=== PATIENT | female | born 1970 | race Caucasian/White ===

== ENCOUNTER 2022-01-01 06:31 | Day surgery (SDC) | payer OTHER, BC, SELFPAY ==
[2022-01-01] VITALS (8 sets, daily range): BP systolic 95–130; BP diastolic 51–93; PULSE 71–80; RESP 16; TEMP 36.1–36.5; O2SAT 96–100; BMI 35.4
--- NOTE | 2022-01-01 06:48 | CRLHL7_ITS ---
For Patients: As a result of the Cures Act, medical imaging exams and procedure reports are released immediately into your electronic medical record. You may view this report before your referring provider. If you have questions, please contact your health care provider. Indication: INTRA OP CRPP Technique: Three fluoroscopic images the left hand. Fluoroscopic time 48.6 seconds. IMPRESSION: Fluoroscopic guidance for closed reduction percutaneous pin placement about a fracture involving the little finger proximal phalanx. Dictated by Abhinav Vazquez MD @ 01/01/2022 8:48:02 AM (Electronically Signed)
[2022-01-01] MEDS: LACTATED RINGERS 1000 ML 1,000 ML 100 ML IV (07:30)
[2022-01-01] MEDS: SODIUM CHLORIDE 0.9 % (FLUSH) 10 ML SYRINGE IVF (07:30)
[2022-01-01] MEDS: fentaNYL 100 MCG/2 ML inj IVP (07:40)
[2022-01-01] MEDS: MIDAZOLAM HCL 1 MG/ML inj IVP (07:40)
--- NOTE | 2022-01-01 07:56 | SUR.PREOP ---
TIME?OUT:?0738 PT/RN/MDA?VERIFICATION?OF?SURGICAL?SITE,?PROCEDURE,?AND?CONSENT OBTAINED?PRIOR?TO?INVASIVE?PROCEDURE.
[2022-01-01] MEDS: CEFAZOLIN 2 GM INJ IVP (08:09)
--- NOTE | 2022-01-01 08:25 | SUR.OPER ---
PATIENT QUESTIONS ANSWERED SATISFACTORILY PREOPERATIVELY.? PATIENT BROUGHT TO OR #2 PER CART AFTER THE BLOCK.? Patient positioned supine on OR #2 bed.?The perioperative?team supported arms bilaterally on arm boards.? Final approval of positioning by surgeon.?
--- NOTE | 2022-01-01 08:45 | PM.ORPRC ---
Procedure Note Date of procedure: 01/01/22 Procedure: SURGEON: Royal Wright MD TELEPHONE SURVEYOR: JULIAN Spring PREOPERATIVE DIAGNOSIS: Extra-articular, comminuted, angulated and shortened left hand small finger proximal phalanx fracture POSTOPERATIVE DIAGNOSIS: Extra-articular, comminuted, angulated and shortened left hand small finger proximal phalanx fracture NAME OF OPERATION: Closed reduction percutaneous pinning ANESTHESIA: Axillary block plus monitored anesthesia care ESTIMATED BLOOD LOSS: 0 mL COMPLICATIONS: None SPECIMENS: None DRAINS: None PREOPERATIVE ANTIBIOTICS: Ancef 2 grams INDICATIONS: The patient is a 51-year-old female who fell landing on their upper extremity sustaining the above injury. Given the amount of angulation, reduction and plate fixation were recommended. The risks, benefits and expected outcomes were discussed in detail. These included but were not limited to: Infection, bleeding, injury to blood vessel or nerve, venous thromboembolism. All questions were answered to their satisfaction. Use of an chiropractor assistant was necessary throughout the case for patient positioning and safety, maintenance of the reduction, surgical site dressing and splint application. PROCEDURE: An axillary block was placed by the chiropractor assistant. The patient was placed supine on the operating room table. The fracture was reduced closed, with longitudinal traction and dorsal force on the distal fragment. The image intensifier was used to confirm an anatomic reduction. A 0.062 in K-wire was driven antegrade, from ulnar side of the base of proximal phalanx, across the fracture site, engaging the radial side of the distal fragment. Its placement was confirmed with the image intensifier. A 2nd 0.062 in K-wire was driven retrograde from the ulnar side of the distal fragment, proximally across the fracture site engaging the radial side of proximal fragment. Its placement was confirmed with the image intensifier. This construct was evaluated with the image intensifier. It was felt that our implants were well placed and our reduction was excellent. Pins were cut off and were appropriately dressed. A short-arm ulnar gutter splint was applied. These steps were all completed by the chiropractor assistant. Sponge and needle counts were correct x2. The patient tolerated the procedure well, there were no apparent complications. They were taken to the postanesthesia care unit in satisfactory condition. PLAN: The patient will be discharged home. They will work on elevation of the hand. They will follow up next week in the office for a wound check with three views of the left hand, out of the splint prior to being seen, in preparation for an ulnar gutter cast.
--- NOTE | 2022-01-01 08:59 | W.ANESCHARGE ---
Anesthesia Charges Start Date/Time Anesthesia Start Date: 01/01/22 Anesthesia Start Time: 08:03 Stop Date/Time Anesthesia Stop Date: 01/01/22 Anesthesia Stop Time: 08:56 Summary Emergency: No
--- NOTE | 2022-01-01 09:14 | W.PM.NB ---
Nerve Block Nerve Block Time Seen by Provider: 07:30 Date Seen: 01/01/22 Type of block requested by surgeon for post-operative analgesia: axillary Side: left Time out performed: Yes Verification of patient name: Yes Verification of date of : Yes Site marking: site marked Name of person performing procedure: Darrel Assistants, if any: Deambrogio Continuous monitoring Was continuous monitoring of O2 sat, B/P, director of cardiac rehabilitation, recorded every 15 minutes?: Yes Procedure Checklist: sterile prep, needles and gloves Ultrasound guided. Images saved: Yes Medications given in 5ml increments after negative aspiration: Marcaine %: 0.5 mL: 10 Needle gauge: 22 and Lidocaine %: 2 mL: 20 Needle gauge: 22 Patient tolerated procedure well: Yes Additional comments: Needle noted adjacent to nerve Block Charges Block Charge (with Pro Fee): Brachial Plexus Use of Ultrasound Machine for Block: Yes- US Guidance/pain block
--- NOTE | 2022-01-01 09:15 | W.ANESCHARGE ---
Anesthesia Charges Start Date/Time Anesthesia Start Date: 01/01/22 Anesthesia Start Time: 08:03 Stop Date/Time Anesthesia Stop Date: 01/01/22 Anesthesia Stop Time: 08:56 Summary Emergency: No
--- NOTE | 2022-01-01 09:21 | W.ANESCHARGE ---
Anesthesia Charges Start Date/Time Anesthesia Start Date: 01/01/22 Anesthesia Start Time: 08:03 Stop Date/Time Anesthesia Stop Date: 01/01/22 Anesthesia Stop Time: 08:56 Summary Emergency: No
== END 2022-01-01 09:56 | disposition home or self-care (01) ==
PROVIDERS: PCP Family Medicine; Visit Provider Orthopaedic Surgery
PROC: (CPT 26727; principal; 2022-01-01 08:00)
DX: S62.617A Displaced fracture of proximal phalanx of left little finger, initial encounter for closed fracture (principal)
CPT/HCPCS: 26727; 01820; 01830; 64415; 73130; 76942; A4565; A4580; J0690; J1100; J2250; J2405; J2704; J3010; J7120

== ENCOUNTER 2022-05-08 11:30 | Outpatient (RCR) | payer OTHER, BC, SELFPAY | END 2022-05-08 16:03 | disposition home or self-care (01) | PROVIDERS: PCP Family Medicine; Visit Provider Orthopaedic Surgery | DX: S62.605D Fracture of unspecified phalanx of left ring finger, subsequent encounter for fracture with routine healing (principal); Z51.89 Encounter for other specified aftercare | CPT/HCPCS: 97110; 97140; 97530; X5282 ==

== ENCOUNTER 2022-07-30 15:00 | Outpatient (CLI) | payer BC, OTHER, SELFPAY | END 2022-07-30 15:01 | disposition home or self-care (01) | PROVIDERS: PCP Family Medicine; Visit Provider Family Medicine | DX: M17.11 Unilateral primary osteoarthritis, right knee (principal); M25.561 Pain in right knee | CPT/HCPCS: 20610; 64454 ==

== ENCOUNTER 2022-08-20 11:51 | Outpatient (CLI) | payer BC, OTHER, SELFPAY | END 2022-08-20 11:52 | disposition home or self-care (01) | LOC: INJ CL 11:52 | PROVIDERS: PCP Family Medicine; Visit Provider Family Medicine | DX: M17.11 Unilateral primary osteoarthritis, right knee (principal); M25.561 Pain in right knee; G89.29 Other chronic pain | CPT/HCPCS: 64624; J2250; J3010 ==

== ENCOUNTER 2022-09-17 14:19 | Outpatient (CLI) | payer BC, OTHER, SELFPAY | END 2022-09-17 14:20 | disposition home or self-care (01) | LOC: INJ CL 14:21 | PROVIDERS: PCP Family Medicine; Visit Provider Family Medicine | DX: M17.12 Unilateral primary osteoarthritis, left knee (principal); M25.562 Pain in left knee | CPT/HCPCS: 64454 ==

== ENCOUNTER 2024-07-13 12:01 | Emergency (ER) | payer BC, SELFPAY ==
[2024-07-13 12:06] VITALS: BP 137/83; PULSE 70; RESP 16; TEMP 37.1; O2SAT 100; BMI 33.8
--- NOTE | 2024-07-13 12:14 | ED.GENADULT ---
HPI - General Adult General Chief complaint: Fall/Minor Trauma Stated complaint: Fall, lac around L eye Time Seen by Provider: 07/13/24 12:04 History of Present Illness HPI narrative: Patient reports falling this AM at work. Has small laceration near left eye lid with periorbital swelling. No LOC. 54-year-old woman presenting to the emergency department following a fall and sustaining a laceration about the left eye. Apparently had a plastic water jug on her way to water some [place] in the office when she tripped and landed with her eye/head on said water bottle. Is not having any neck or back pain. There was no loss of consciousness. Dentition feels normal. Is not anticoagulated. No diplopia. Does have some pain around her left eye where she has sustained a laceration. Strongly encouraged spine plain mid to present to the emergency department for further evaluation and care. Related Data Home Medications ?Medication ?Instructions ?Recorded ?Confirmed allopurinol 300 mg tablet 300 mg PO QDAY 12/26/21 03/20/22 escitalopram oxalate 5 mg tablet 5 mg PO QDAY 12/26/21 03/20/22 furosemide 20 mg tablet 20 mg PO QDAY 12/26/21 03/20/22 metoprolol succinate 50 mg tab PO 12/26/21 03/20/22 tablet,extended release 24 hr omeprazole 20 mg capsule,delayed 20 mg PO QDAY 12/26/21 07/13/24 release potassium chloride 20 mEq tab PO 12/26/21 03/20/22 tablet,extended release(part/cryst) escitalopram oxalate 20 mg tablet mg DAILY 07/13/24 thiamine HCl (vitamin B1) 100 mg mg DAILY 07/13/24 tablet Allergies Allergy/AdvReac Type Severity Reaction Status Date / Time chlorthalidone AdvReac Verified 03/20/22 11:12 erythromycin base AdvReac Nausea Verified 03/20/22 11:12 Penicillins AdvReac syncope Verified 03/20/22 11:12 Review of Systems Status of ROS: Reports: 6 or more systems reviewed and unremarkable except as noted in History and below [facility] Medical History Surgery follow-up ?Z09 - Encounter for follow-up examination after completed treatment for conditions other than malignant neoplasm (ICD-10) Depression ?F32.A - Depression, unspecified (ICD-10) Hypertension ?I10 - Essential (primary) hypertension (ICD-10) GERD (gastroesophageal reflux disease) ?K21.9 - Gastro-esophageal reflux disease without esophagitis (ICD-10) Surgical History History of hand surgery ?Z98.890 - Other specified postprocedural states (ICD-10) Family History Paternal Grandmother Colon cancer Father Diabetes Social History Narrative: former smoker, , environmental engineering intern Smoking Status: Former smoker What tobacco products do you use: cigarettes Smoking quit date/years: <= 15 years ago Do you use any of these nicotine containing products: None Second hand tobacco smoke exposure: No How often do you have a drink containing alcohol: 4 or more times a week Alcohol type: hard liquor How many standard drinks containing alcohol do you have on a typical day: 1 or 2 How often do you have six or more drinks on one occasion: Never AUDIT-C Alcohol total score: 4 Non-prescribed substance use: denies use Caffeine: No Are you now , , , , never or living with a partner: Social isolation score (0-1 are the most socially isolated patients): 1 Are you using contraception or practicing any form of control: No Exam Narrative: Exam Narrative: Pleasant. Energetic. NAD. There is already purpling in mild swelling of the left eyelid. Near total coverage of the left eye medial sclera with subconjunctival hemorrhage. There is some lateral Periorbital bruising. Sore to palpation over the orbital rim but no irregularities otherwise, step-offs appreciated. A 1-1/4 partial dermal laceration at the corner of the left eye. Dentition appears to be intact anteriorly. Centrally on further exploration there appears to be just a small amount of perforation centrally to be full dermal. Extraocular movements are full. Pupils are 3 mm and equal and briskly reactive. No hyphema evident. Left eye with normal funduscopic exam as well. Neck is supple nontender. Back nontender. Const: Vital Signs, click to edit/add: Vital Signs - 24 hr 07/13/24 12:06 Temperature 98.8 F Pulse Rate [Pulse Oximeter] 70 Respiratory Rate 16 Blood Pressure [Ri ght Upper Arm] 137/83 Pulse Oximetry 100 Documenting provider has reviewed patient's vital signs: yes Course Vital Signs Vital signs: Initial Vital Signs Temperature 98.8 F 07/13/24 12:06 Temperature Source Temporal Artery Scan 07/13/24 12:06 Pulse Rate 70 07/13/24 12:06 Respiratory Rate 16 07/13/24 12:06 Blood Pressure 137/83 07/13/24 12:06 Blood Pressure Mean 101 07/13/24 12:06 Pulse Oximetry 100 07/13/24 12:06 Vital Signs Temperature 98.8 F 07/13/24 12:06 Pulse Rate 70 07/13/24 12:06 Respiratory Rate 16 07/13/24 12:06 Blood Pressure 137/83 07/13/24 12:06 Pulse Oximetry 100 07/13/24 12:06 Temperature 98.8 F 07/13/24 12:06 Pulse Rate 70 07/13/24 12:06 Respiratory Rate 16 07/13/24 12:06 Blood Pressure 137/83 07/13/24 12:06 Pulse Oximetry 100 07/13/24 12:06 Medical Decision Making MDM Narrative Medical decision making narrative: Appears generally well. Does not sound to have sustained significant closed head injury. No diplopia suggest no significant trauma or retro-orbital bleeding. Is not anticoagulated. I do not think needs any head or neck imaging at this time. I return to clean the laceration. I think would scar less with repair. Bleeding is controlled however. Cleansed with Shur-Clens type solution and with tension on the wound can actually provide excellent approximation. Had thought that would place a Steri-Strip. She had asked about glue. Glue in is certainly another option. I do this and laceration appears to be well approximated. Tolerated well. See patient discharge plan for further discussion Wound should not need any special cares at this point. Should be good if the glue can stay on at least 3 days. Let it fall off. Watch for increasing eye pain particularly accompanied by double vision, uncontrolled headache, repeated vomiting. Would consider icing around your eye couple of times daily over the next few days. I like those screw top ice bags; fill with ice and water. Consider some stretching and ibuprofen. Might be a little sore tomorrow. Medical Records Medical records reviewed: Yes I reviewed the patient's medical records Discharge Plan Discharge Clinical Impression: Facial laceration, Subconjunctival hemorrhage, Closed head injury Patient Disposition: Home, Self-Care Condition: Improved Additional Instructions: Wound should not need any special cares at this point. Should be good if the glue can stay on at least 3 days. Let it fall off. Watch for increasing eye pain particularly accompanied by double vision, uncontrolled headache, repeated vomiting. Would consider icing around your eye couple of times daily over the next few days. I like those screw top ice bags; fill with ice and water. Consider some stretching and ibuprofen. Might be a little sore tomorrow. Prescriptions: No Action furosemide 20 mg tablet 20 mg PO QDAY allopurinol 300 mg tablet 300 mg PO QDAY metoprolol succinate 50 mg tablet extended release 24 hr PO potassium chloride 20 mEq tablet,ER particles/crystals PO escitalopram oxalate 5 mg tablet 5 mg PO QDAY omeprazole 20 mg capsule,delayed release(DR/EC) 20 mg PO QDAY thiamine HCl (vitamin B1) 100 mg tablet DAILY escitalopram oxalate 20 mg tablet DAILY Follow Up/Referrals: Martina Villalta DO [Primary Care Provider] - Stand Alone Forms: [employer] Info Instructions
--- OUTSIDE RECORDS SUMMARY | 2024-07-13 12:44 | XMS_ITS | Clinical Summary ---
Author Organization [facility] Address [address] [place] [address] Care Team Providers Care Or Rn Name Role Phone PawanMartina Primary Care Provider [phone] Pcp, No Unavailable Unavailable Allergies Active Allergy Reactions Criticality Noted Date Comments Chlorthalidone Hypokalemia 09/16/2019 Caused critically low sodium Erythromycin Rash 05/04/2014 Penicillins Other - Describe In Comment Field 05/04/2014 unresponsive spell (this happened in fourth grade) Medications acetaminophen (TYLENOL EXTRA STRGTH) 500 mg tablet Take 2 tablets by mouth every 6 hours if needed. Max acetaminophen dose: 4000mg in 24 hrs. 0 04/21/20 18 Active medical supply, miscellaneous (GRADUATED COMPRESSION STOCKINGS)Indicat ions:Pedal edema For personal use. Length: thigh Strength:16-20 mmHg Circ cm: For thigh: Ankle 30cm, Calf 47cm, Thigh 63cm, Thigh to Ankle length 63cm. 1 Packet 01/19/20 20 Active triamcinolone 0.5% (ARISTOCORT) 0.5 % creamIndications: Chronic eczema Apply at areas on legs 1-2 times a day. 454 g 10/02/19 22 Active colchicine 0.6 mg tabletIndications :Acute idiopathic gout of knee, unspecified laterality As directed 1 Tablet (0.6 mg) once daily. 1 ORAL twice daily FOR 4-5 days during flare up. 20 Tablet 2 11/22/19 22 Active turmeric root extract 500 mg cap Take 1 Capsule by mouth once daily. Active estradioL (ESTRACE) 0.01% (0.1 mg/g) vaginal creamIndications: Vaginal atrophy Start 2g PV nightly x 2 weeks then decrease to 1-3 times a week 42.5 g 3 11/20/19 23 Active durable medical equipment (DME)Indications: Plantar fasciitis PLANTAR FASCIITIS NIGHT SPLINT, Large 1 Each 04/08/20 23 Active potassium chloride (KLOR-CON M20) 20 mEq extended-release tablet (part/cryst)Indic ations:Pedal edema Take 20 meq by mouth daily as needed for use with Furosemide 90 Tablet 3 06/02/19 24 Active furosemide (LASIX) 20 mg tabletIndications :Pedal edema Take 1 Tablet (20 mg) by mouth once daily if needed (for weight gain of 3 lbs one day or 5 lbs or more in one week). 90 Tablet 3 06/02/19 24 Active CPAPIndications:O SA (obstructive sleep apnea) CPAP machine for home use at pressure 5-15cmw, nasal mask x1/3month with nasal cushion x2/mo 1 Each 11 09/10/19 24 Active escitalopram oxalate (LEXAPRO) 20 mg tabletIndications :Emotional lability Take 1 Tablet (20 mg) by mouth once daily. 90 Tablet 3 11/07/19 24 Active omeprazole (PRILOSEC) 20 mg Delayed-Release capsuleIndication s:Gastroesophagea l reflux disease, unspecified whether esophagitis present TAKE ONE CAPSULE BY MOUTH EVERY DAY BEFORE A MEAL 90 Capsule 1 04/26/20 24 Active thiamine (VITAMIN B1) 100 mg tabletIndications :Decreased cardiac ejection fraction Take 1 Tablet (100 mg) by mouth once daily. 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 Hit head hard. Left side of face and eye has hematoma ) 07/13/2024 Travel 04/26/2024 Refill [facility] [address] [place] [address] Martina Villalta, DO Refill Request (Thiamine) 04/24/2024 Refill [facility] [address] [place] [address] Martina Villalta, Refill Request (Omeprazole) from Last 3 Months Immunizations Name Administration Dates Next Due COVID-19 vaccine (Powerlytics-Bio NTech 30mcg/0.3mL) 12YO+ BRIANNA-SUCROSE PF, MDV 10/01/2021 COVID-19 vaccine (Pfizer-Bio NTech 30mcg/0.3mL) PF, MDV 10/03/2020,09/12/2020 HepA-HepB (Twinrix) 10/25/2004,11/18/2003,2003 Influenza, IIV4 03/04/2023,,03/15/2021,02/07/20 20,04/21/2018,03/11/2017 Td (Age >=7 Years) 07/27/2002 Tdap 09/07/2015 Zoster (Shingrix-RZV, recombinant) 10/05/2018, Family History Medical History Relation Name Comments Diabetes Father Hypertension Father Cancer Maternal Grandfather Cancer Maternal Grandmother Diabetes Maternal Grandmother Cancer-breast Mother pre-cancer / r adiation Cancer-colon Paternal Grandmother Cancer-ovarian No Family History Relation Name Status Comments Father Maternal Grandfather Maternal Grandmother Mother Alive Paternal Grandmother Social History Tobacco Use Types Packs/Day Years Used Date Smoking Tobacco: Former Cigarettes 0 07/30/1988 - 08/24/2015 Smokeless Tobacco: Never Tobacco Cessation:Counseling Given: Yes Alcohol Use Standard Drinks/Week Comments Not Currently 0 (1 standard drink = 0.6 oz pur e alcohol) PHQ-2 Answer Date Recorded PHQ-2 TOTAL SCORE 0 09/16/2023 Social Connections Answer Date Recorded Do you often feel lonely or isolated from those around you? 0 07/28/2023 Alcohol Use Answer Date Recorded How often do you have a drink containing alcohol ? 3 06/24/2023 How many drinks containing a lcohol do you have on a typical day when you are drinking? 0 06/24/2023 How often do you have five or more drinks on one occasion? 0 06/24/2023 Financial Resource Strain Answer Date R ecorded Difficulty of Paying Living Expenses 3 07/28/2023 Difficulty of Paying Living Expenses Not on file 07/28/2023 Food Insecurity Answer Date Recorded Do you worry your food will run out before you are able to buy more? 1 07/28/2023 Transportation Needs Answer Date Record ed Does lack of transportation keep you from medica l appointments? 1 07/28/2023 Does lack of transportation keep you from work, meetings or getting things that you need? 1 07/28/2023 Housing Stability Answer Date Recorded What is your housing situation today? 1 07/28/2023 Utilities Answer Date Recorded Do you have trouble paying f or utilities (for example, heat, electricity, water, phone)? 1 07/28/2023 Comments No Sex and Gender Information Value Date Recorded Sex Assigned at Not on file Legal Sex Female 12:33 PM DECAL APPLIER Gender Identity Not on file Sexual Orientation Not on file Obstetrics History Para Term AB IAB SAB Ectopic Multiple Livin g Live Births 3 2 2 0 1 0 1 0 0 2 2 Date Outcome GA Total Labor Labor/2nd/3rd Weight Sex Type Anes PTL Bisi A1 A5 Name Clin SAB Term Vag Living Term Vag Living Last Filed Vital Signs Vital Sign Reading Time Taken Comments Blood Pressure 134/82 07/13/2024 11:01 AM DECAL APPLIER Pulse 74 07/13/2024 11:01 AM DECAL APPLIER Temperature 36.2 C (97.1 F) 08/09/2023 10:16 AM CDT Respiratory Rate 16 08/09/2023 10:16 AM CDT Oxygen Saturation 97% 07/13/2024 11:01 AM DECAL APPLIER Inhaled Oxygen Concentration - - Weight 107 kg (236 lb) 07/13/2024 11:01 AM DECAL APPLIER Height 177.8 cm (5' 10) 09/10/2023 7:56 AM CDT Body Mass Index 33.86 09/10/2023 7:56 AM CDT Plan of Treatment Upcoming Encounters Date Type Department Care Team (Late st Contact Info) Description 10/06/2024 2:30 PM CDT Office Visit [facility] [address] [place] [address] Luisito Crooks MD [address] [place] [address] Health Maintenance Due Date Last Done Comments Pneumococcal series for age 50+ (1 of 2 - PCV) 02/03/1987 Mammogram for age 45-75 11/20/2023 11/20/19, 10/01/2021, 09/07/2020, Additional history exists COVID-19 vaccine series ( season) 2024 10/01/2021, 10/03/2020, 09/12/2020 Influenza for age 50-64 01/25/2024 03/04/20, 03/12/2022, 03/15/2021, Additional history exists BMI (ht and wt on same day) for age 18+ 09/09/2024 09/10/2023, 08/09/2023, 07/01/2023, Additional history exists Depression screening for age 12+ 09/15/2024 09/16/2023, 09/16/2023, 08/14/2023, Additional history exists Tetanus booster 09/06/2025 09/07/2015, 07/27/2002 Pap test for age 21-65 09/07/2025 , 09/07/2020, 09/18/2015, Additional history exists Lipids for age 45-75 11/20/2027 11/19/2022, 10/01/2021, 09/07/2020, Additional history exists Colonoscopy through age 75 2033 2023 Tdap Completed 09/07/2015 Zoster (shingles) series for age 50+ Completed 10/05/2018, 07/27/2018 HIV for age 15-65 Completed 11/19/2022 Hepatitis C screening for ag e 18-79 Completed 07/28/2023, 11/19/2022 Procedures Procedure Name Priority Date/Time Associated Diagnosis Comments ANTI HCV Routine 07/28/2023 3:07 PM DECAL APPLIER Elevated liver enzymes COLONOSCOPY 2023 12:59 PM CDT LC HIV-1/O/2, 4TH GENERATION Routine 11/19/2022 3:40 PM CDT Screening for HIV (human immunodeficiency virus) LIPID PANEL W REFLEX MEASURED LDL Routine 11/19/2022 3:40 PM CDT Hyperlipidemia, unspecified hyperlipidemia type XR MAMMO TUTU BILAT SCREEN Routine 11/19/2022 1:45 PM CDT Encounter for screening mammogram for malignant neoplasm of breast TRUCK DRIVER TEAMSTER THIN PREP PAP SCREEN IMAGED Routine 09/07/2020 8:10 AM CDT Cervical cancer screening from Last 3 Months or Most Recently Relevant to Health Maintenance Results * ANTI HCV (07/28/2023 3:07 PM DECAL APPLIER) HEPATITIS C ANTIBODY Non-Reacti ve Non-React evangelina 07/29/2023 9:31 AM DECAL APPLIER [facility] Comment:Please note, per www .CDC.gov: If a patient is known to be at high risk of HCV infection, or is symptomatic, and the physician's suspicion of HCV infection is high, HCV RNA testing is often employed and is of diagnostic value, even after an initial negative anti-HCV test result. Blood BLOOD SPECIMEN / Unknown Venipuncture / Unknown 07/28/2023 3:07 PM DECAL APPLIER 07/28/2023 3:08 PM DECAL APPLIER us Martina Villalta DO SEND OUTS Final Resu lt [facility] [address] [place] [address], * COLONOSCOPY (2023 12:59 PM CDT) 2023 12:5 9 PM CDT Narrative Transcriptions Naren Leslie MD - 2023 2:10 PM CDT Patient Name: Eli Costello Procedure Date: 2023 Gender: Female Date of : 1970 Admit Type: Outpatient Procedure: Colonoscopy Proceduralist: Naren Leslie MD , Ewa Siegel, ROSA (Nurse), Karissa Bell (Nurse) Indications/Pre-Op Diagnosis: Screening for colorectal malignant neoplasm, This is the patient's first colonoscopy Medications: Fentanyl 100 micrograms IV, Midazolam 2 mgIV, The level of sedation administered wasmoderate Procedure Description: The patient had risks, benefits and alternatives explained to andgave informed consent. The patient had a stable cardiopulmonary status and judged an adequate candidate for conscious sedation. The endoscope [id number] was passed through the anus andadvanced to the cecum, identified by appendiceal orifice and ileocecal valve.The colonoscopy was performed without difficulty. The patient toleratedthe procedure well. The quality of the bowel preparation was good. The ileocecal valve, appendiceal orifice, and rectum were photographed. Complications: No immediate complications. Estimated Blood Loss & Specimen: Estimated blood loss: none. Specimen collected - None Findings: The perianal and digital rectal examinations were normal. The entire examined colon appeared normal. Impressions/Post-Op Diagnosis: - The entire examined colon is normal. - No specimens collected. Recommendation: - Patient has a contact number available for emergencies. The signsand symptoms of potential delayed complications were discussed with the patient. Return to normal activities tomorrow. Written discharge instructions were provided to the patient. - Resume previous diet. - Continue present medications. - Repeat colonoscopy in 10 years for screening purposes. Moderate Sedation: A time out was performed before the procedure. Moderate (conscious) sedation was administered by the endoscopy nurse and supervised bythe endoscopist. The following parameters were monitored: oxygensaturation, heart rate, blood pressure, EKG, CO2, respiratory rate, adequacy of pulmonary ventilation and reponse to care. Please refer to the patient's medical record flowsheets and nursing notes for moderate sedation details. Total physician intraservice time was 15 minutes. Naren Leslie MD 2023 2:10:10 PM This report has been signed electronically. Note Initiated On: 2023 12:59 PM Procedure Code(s): --- Professional --- 34587, Colonoscopy, flexible; diagnostic, including collection of specimen(s) bybrushing or washing, when performed (separateprocedure) Diagnosis Code(s): --- Professional --- Z12.11, Encounter for screening formalignant neoplasm of colon CPT copyright 2021 [employer]. All rights reserved. The codes documented in this report are preliminary and upon piano player reviewmay be revised to meet current compliance requirements. Scope In: 1:50:11 PM Scope Withdrawal Time 0 hours 6 minutes 30 seconds Scope Out: 2:02:04 PM us Naren Leslie MD PROCEDURE ORD Final Res ult * LC HIV-1/O/2, 4TH GENERATION (11/19/2022 3:40 PM CDT) HIV Scr 4th Gen Non Reactive Non Reactive 11/23/2022 8:09 AM CDT [facility] Comment: HIV Negative HIV-1/HIV-2 antibodies and HIV-1 p24 antigen were NOT detected. There is no laboratory evidence of HIV infection. Blood BLOOD SPECIMEN / Unknown Venipuncture / Unknown 11/19/2022 3:40 PM CDT 11/19/2022 3:46 PM CDT Narrative [facility] - 11/23/2022 8:09 AM CDT Performed at: [address] [id number] Technology Instructor: Asif Cuadra MD, Phone: [phone] Martina Villalta DO LABORATORY Final Resu lt [facility] ([facility]) [address] [place] [address], * (ABNORMAL) LIPID PANEL W REFLEX MEASURED LDL (11/19/2022 3:40 PM CDT) [facility] CHOLESTEROL,TOTAL 243(H) 100 - 199 mg/dL 11/20/2022 4:05 PM CDT [facility] Comment: Cholesterol, Total Reference Ranges Desirable <200 mg/dL Borderline 200-239 mg/dL High >=240 mg/dL TRIGLYCERIDES 222(H) <150 mg/dL 11/20/2022 4:05 PM CDT [facility] HDL CHOLESTEROL 37(L) >40 mg/dL 4:05 PM CDT [facility] NON-HDL CHOLESTEROL 206(H) <145 mg/dl 11/20/2022 4:05 PM CDT [facility] CHOL/HDL RATIO 6.57(H) <4.50 11/20/2022 4:05 PM CDT [facility] LDL CHOLESTEROL 162(H) <=130 mg/dL 11/20/2022 4:05 PM CDT [facility] VLDL CHOLESTEROL 44(H) <=30 mg/dL 11/20/2022 4:05 PM CDT [facility] PROVIDER ORDERED STATUS RANDOM 11/20/2022 4:05 PM CDT [facility] Blood BLOOD SPECIMEN / Unknown Venipuncture / Unknown 11/19/2022 3:40 PM CDT 11/19/2022 3:46 PM CDT us Martina Villalta DO CHEMISTRY Final Resu lt [facility] LAB[facility] [address] [place] [address], [place] * XR MAMMO TUTU BILAT SCREEN (11/19/2022 1:45 PM CDT) Anatomical Region Laterality Modality BREASTS, Breast Left, Breast Right Bilateral Mammography Impressions 11/19/2022 3:23 PM CDT There is no radiographic evidence for malignancy. Recommend annual mammograms. MAMMOGRAM ASSESSMENT: ACR 1 Negative PATIENTS: You will also receive a letter with your examination results in an easy to read format. If you have questions about your results, please contact your referring provider. Narrative 11/19/2022 3:23 PM CDT For Patients: As a result of the Cures Act, medical imaging exams and procedure reports are released immediately into your electronic medical record. You may view this report before your referring provider. If you have questions, please contact your health care provider. XR MAMMO TUTU BILAT SCREEN [[id number]] CLINICAL HISTORY: This is an asymptomatic 52 y.o. patient. INDICATION FOR EXAM: Mammogram Screening. TECHNIQUE: CC & MLO views were obtained. This study was evaluated with the assistance of Computer-Aided Detection. Breast Tomosynthesis was used in interpretation. COMPARISON FILM: Yes 10/01/21 [facility] 09/07/20 [facility] FINDINGS: The breasts are almost entirely fatty. There are no dominant masses, suspicious micro calcifications or areas of architectural distortion. Martina Villalta DO MAMMO Final Resu lt * TRUCK DRIVER TEAMSTER THIN PREP PAP SCREEN IMAGED (09/07/2020 8:10 AM CDT) Case Report Gynecologic Cytology Report Case: [id number] Authorizing Provider: Martina Villalta DO Collected: 09/07/2020 0810 Ordering Location: [facility] Received: 09/07/2020 0908 Clinic First Screen: Baccam, Minie Specimen: TRUCK DRIVER TEAMSTER ThinPrep Vial Screening, Cervical 09/15/2020 4:21 PM CDT [facility] INTERPRETATION/ RESULT NEGATIVE FOR INTRAEPITHELIAL LESION OR MALIGNANCY (NIL) (none) 09/15/2020 4:21 PM CDT [facility] IMEN ADEQUACY Satisfactory for evaluation Endocervical component present 09/15/2020 4:21 PM CDT [facility] HPV REQUEST HPV and PAP 09/15/2020 4:21 PM CDT [facility] Date of LMP postmenopausal 4:21 PM CDT [facility] Last Pap Date 09/18/15 09/15/2020 4:21 PM CDT [facility] Last Pap Result NIL 4:21 PM CDT [facility] Abnormal Pap or [place] Bx in last 5 years No 09/15/2020 4:21 PM CDT [facility] Menstrual Status Postmenopausal 09/15/2020 4:21 PM CDT [facility] [place] Bx Done Today No 09/15/2020 4:21 PM CDT [facility] Additional Information None given 09/15/2020 4:21 PM CDT [facility] Comment: Cytology is screened at [facility] Laboratory - [address], [place] [address] and [facility] - [address] [place] [address] and [facility] - [address] [place] [address] Interpreted at [facility] Laboratory - [address], [place] [address] Automated Review Successful 09/15/2020 4:21 PM CDT [facility] Comment:Specimen processed s uccessfully by automated upholsterer helper device, ThinPrep Imaging System, [employer] ANCILLARY TESTING TRUCK DRIVER TEAMSTER HPV Ordered, Please see separate report 09/15/2020 4:21 PM CDT [facility] Note The pap test is a screening technique, not a diagnostic procedure. It is used primarily to screen for squamous cancers and precursor lesions. Published studies have shown that it is subject to both false negative and false positive results. The pap test should not be used as the sole means to diagnose or exclude pre-malignant and malignant lesions. 09/15/2020 4:21 PM CDT [facility] Other (Cervical) Non-Blood / Unknown 09/07/2020 8:10 AM CDT 09/07/2020 9:08 AM CDT us Martina Villalta DO PATHOLOGY/CYTOLOGY Final R esult [facility] [address] [place] [address], from Last 3 Months or Most Recently Relevant to Health Maintenance Insurance [facility] Long Tail [facility] Care Teams Or Rn Relationship Specialty Start Date End Date Martina Villalta [place] [address] PCP - General Family Practice 04/29/14 Pcp, No . 04/29/14
== END 2024-07-13 12:52 | disposition home or self-care (01) ==
PROVIDERS: Emergency Provider Family Medicine; PCP Family Medicine
DX: S01.81XA Laceration without foreign body of other part of head, initial encounter (principal); H11.32 Conjunctival hemorrhage, left eye; W19.XXXA Unspecified fall, initial encounter
CPT/HCPCS: 99282; 99283; 99284

== ENCOUNTER 2025-02-17 09:06 | Day surgery (SDC) | payer BC, SELFPAY ==
[2025-02-17] VITALS (23 sets, daily range): BP systolic 85–183; BP diastolic 53–102; PULSE 58–84; RESP 10–18; TEMP 36.1–36.8; O2SAT 92–99; BMI 34.7
[2025-02-17] MEDS: LACTATED RINGERS 1000 ML 1,000 ML 100 ML IV (09:40)
[2025-02-17] MEDS: SODIUM CHLORIDE 0.9 % (FLUSH) 10 ML SYRINGE IVF (09:40)
[2025-02-17] MEDS: ACETAMINOPHEN 500 MG TABLET 1000 MG PO ×2 (09:45→18:12)
[2025-02-17] MEDS: CELECOXIB 200 MG CAPSULE PO ×2 (09:45→21:28)
[2025-02-17] MEDS: OXYCODONE (CR) 10 MG TAB.ER.12H PO (09:45)
[2025-02-17 09:57] LABS: Hematocrit* 36.5 % (33.0-51.0); Hemoglobin* 12.5 gm/dL (12.0-16.0); Immature Granulocytes Abs Auto 0.00 K/uL (0.00-0.30); Immature Granulocytes Pct Auto 0.0 %; Mean Corpuscular HGB Conc 34 gm/dL (32-36); Mean Corpuscular Hemoglobin 31 pg (26-34); Mean Corpuscular Volume 91 fL (80-100); RDW Coefficient of Variation % 14.4 % (11.5-15.5); Red Blood Count* 4.01 m/uL (4.00-5.20); White Blood Count* 3.63 K/uL (4.50-11.00)
[2025-02-17 09:59] LABS: Lymphocytes Absolute Auto 1.30 K/uL (0.90-2.90); Slide Review Reflex No
[2025-02-17] MEDS: MIDAZOLAM HCL 1 MG/ML inj IVP (11:09)
--- NOTE | 2025-02-17 11:14 | P.NB_ITS ---
Nerve Block Nerve Block Time Seen by Provider: 11:10 Date Seen: 02/17/25 Type of block requested by surgeon for post-operative analgesia: adductor canal Side: right Time out performed: Yes Verification of patient name: Yes Verification of date of : Yes Site marking: site marked Name of person performing procedure: Darrel Continuous monitoring Was continuous monitoring of O2 sat, B/P, corrosion engineer, recorded every 15 minutes?: Yes Procedure Checklist: sterile prep, needles and gloves Ultrasound guided. Images saved: Yes Medications given in 5ml increments after negative aspiration: Marcaine %: 0.25 mL: 15 Needle gauge: 20 Precedex (mcg): 25 Patient tolerated procedure well: Yes Block Charges Block Charge (with Pro Fee): Femoral Nerve Use of Ultrasound Machine for Block: Yes- US Guidance/pain block
--- NOTE | 2025-02-17 11:15 | P.NB_ITS ---
Nerve Block Nerve Block Time Seen by Provider: 11:10 Date Seen: 02/17/25 Type of block requested by surgeon for post-operative analgesia: geniculars Side: right Time out performed: Yes Verification of patient name: Yes Verification of date of : Yes Site marking: site marked Name of person performing procedure: Darrel Continuous monitoring Was continuous monitoring of O2 sat, B/P, nurse monitoring, recorded every 15 minutes?: Yes Procedure Checklist: sterile prep, needles and gloves Ultrasound guided. Images saved: Yes Medications given in 5ml increments after negative aspiration: Marcaine %: 0.25 mL: 9 Needle gauge: 25 Patient tolerated procedure well: Yes Block Charges Block Charge (with Pro Fee): Genicular Nerve Block
--- NOTE | 2025-02-17 11:15 | P.ANES_ITS ---
Anesthesia Charges Start Date/Time Anesthesia Start Date: 02/17/25 Anesthesia Start Time: 12:07 Stop Date/Time Anesthesia Stop Date: 02/17/25 Anesthesia Stop Time: 14:22 Coding CPT Codes CPT Codes: ANESTH KNEE ARTHROPLASTY - 23923 ([id number]) P3 - PATIENT W/SEVERE SYS DISEASE, QK - OYSTER FLOATER 2-4 CNCRNT ANES PROC, QX - TANKROOM WORKER SVC W/ MD MED DIRECTION
--- NOTE | 2025-02-17 11:15 | W.ANESCHARGE ---
Anesthesia Charges Start Date/Time Anesthesia Start Date: 02/17/25 Anesthesia Start Time: 12:07 Stop Date/Time Anesthesia Stop Date: 02/17/25 Anesthesia Stop Time: 14:22 Coding CPT Codes CPT Codes: ANESTH KNEE ARTHROPLASTY - 22588 ([id number]) P3 - PATIENT W/SEVERE SYS DISEASE, QK - CONTROL AND RECOVERY COMBAT RESCUE 2-4 CNCRNT ANES PROC, QX - DISTILLERY MILLER HELPER SVC W/ MD MED DIRECTION
--- NOTE | 2025-02-17 11:16 | SUR.PREOP ---
TIME?OUT:?1108 PT/RN/MDA?VERIFICATION?OF?SURGICAL?SITE,?PROCEDURE,?AND?CONSENT OBTAINED?PRIOR?TO?INVASIVE?PROCEDURE.
[2025-02-17] MEDS: TRANEXAMIC ACID 100 MG/ML INJ 1000 MG IV (12:19)
--- NOTE | 2025-02-17 13:38 | CRLHL7_ITS ---
For Patients: As a result of the Cures Act, medical imaging exams and procedure reports are released immediately into your electronic medical record. You may view this report before your referring provider. If you have questions, please contact your health care provider. Indication: Postop right TKA Technique: Two views right knee Findings/Impression: Hardware from a right total knee arthroplasty is in satisfactory position. Bone alignment is normal. No sign of acute fracture. Postop changes are within normal limits. Dictated by Abhinav Vazquez MD @ 02/18/2025 11:57:27 AM (Electronically Signed)
--- NOTE | 2025-02-17 13:48 | PM.ORPRC ---
Procedure Note Date of procedure: 02/17/25 Procedure: PREOPERATIVE DIAGNOSIS: Right knee osteoarthritis POSTOPERATIVE DIAGNOSIS: Right knee osteoarthritis NAME OF OPERATION: Right total knee arthroplasty SURGEON: Royal Wright MD EXHAUSTER ENGINEER: JULIAN Spring ANESTHESIA: Spinal ESTIMATED BLOOD LOSS: 0 mL COMPLICATIONS: None SPECIMENS: None DRAINS: None PREOPERATIVE ANTIBIOTICS: Ancef 2g IMPLANTS: 1. J&J Attune #6 posterior stabilized femur 2. #6 fixed-bearing tibia 3. #6 posterior stabilized, 8 mm fixed-bearing polyethylene 4. 38 patella INDICATIONS: The patient is a 55-year-old with a longstanding history of severe, unrelenting right knee pain secondary to end-stage (grade IV) right knee osteoarthritis. Despite appropriate nonoperative management, including activity modification, anti-inflammatories, [id number] pain medication, bracing, physical therapy, and injections they continue to have pain and disability. Operative intervention was offered. The risks, benefits and expected outcomes were discussed in detail. These included but were not limited to: Infection, bleeding, injury to blood vessel or nerve, venous thromboembolism. All questions were answered to their satisfaction. Use of an spa assistant manager was necessary throughout the case for patient positioning and safety, soft tissue retraction, and closure. PROCEDURE: Spinal anesthesia was administered. The patient was placed supine on the operating table. The spa assistant manager made sure the patient was positioned appropriately. The lower extremity was prepped and draped in the usual sterile fashion. The limb was exsanguinated with the Naren bandage. The pneumatic tourniquet was inflated to 225mmHg. A standard anterior incision was made with the knee in flexion. Subcutaneous dissection was sharply taken through fascial layer #1. Full-thickness medial and lateral flaps were elevated. The spa assistant manager retracted the soft tissues and protected them throughout the case. A standard subvastus approach was made. The patella was subluxed. The infrapatellar fat pad was preserved. The menisci and cruciate ligaments were sharply d?brided. Marginal osteophytes were d?brided with the rongeur. The drill was used to penetrate the femoral canal. The intramedullary femoral guide was placed for a 5-degree valgus cut, removing 10 mm off the distal femur. The saw was used to make the cut. Whitesides line and the trans epicondylar axis were marked. The femoral sizing guide was pinned onto the distal femur. Three degrees of external rotation nicely parallels the transepicondylar axis. Pins were placed for posterior referencing. The four-in-one cutting guide was pinned onto the distal femur. The anterior, posterior, and chamfer cuts were made. The spa assistant manager protected the collateral ligaments. The box cutting guide was pinned. The box cuts were made. The boxed trial was placed and was an excellent fit. Drill holes for the lugs were made. Attention was then turned to the proximal tibia. The intramedullary tibial guide was placed for a neutral varus/valgus cut with 3 degrees of posterior slope, removing 2 mm based off the medial tibial surface. The spa assistant manager protected the collateral ligaments and the neurovascular bundle. The saw was used to make the cut. Trial components were placed. The knee was nicely balanced in both flexion and extension. The trial components were removed. The tray was placed in appropriate rotation, parallel to our tibial cutting pins. It was pinned by the spa assistant manager and the drill x2 was used. The stemmed tibial trial was placed. The punch was used. The tray was removed. The punch was used again. Attention was then turned to the patella. [place] patellar thickness was 22.5 mm. The lobster claw resection guide was used with the 9.5 mm emma. The saw was used to make the cut. Drill holes were made by the spa assistant manager. The trial was placed and was an excellent fit. Cancellous surfaces were irrigated with pulse lavage and thoroughly dried by the spa assistant manager. We cemented the tibial component, then the femoral component. We impacted the 8 mm polyethylene onto the tibial tray. The knee was brought into full extension. We then cemented the patellar component. Excessive cement was removed. The cement was allowed to harden. The knee was taken through a range of motion and was found to be nicely balanced in both flexion and extension. The patella tracks centrally. The spa assistant manager did a three minute dilute Betadine solution soak. The spa assistant manager irrigated the wound with 3 liters of normal saline via pulse lavage. The spa assistant manager reapproximated the extensor mechanism with #1 Vicryl in an interrupted [id number] fashion. The spa assistant manager then ran the extensor mechanism with a #1 PDO Stratafix. The spa assistant manager closed the subcutaneous tissues with a 3-0 Stratafix and the skin with a running 3-0 Stratafix in a subcuticular fashion. Glue was used to seal the skin. The spa assistant manager placed a dry dressing. Sponge and needle counts were correct x2. The patient tolerated the procedure well. There were no apparent complications. They were carefully transferred to the hospital bed and taken to the postanesthesia care unit in satisfactory condition. PLAN: The patient will be mobilized with physical therapy. Aspirin will be used for DVT prophylaxis. They will be discharged to home once medically appropriate.
--- NOTE | 2025-02-17 14:21 | P.ANES_ITS ---
Anesthesia Charges Start Date/Time Anesthesia Start Date: 02/17/25 Anesthesia Start Time: 12:07 Stop Date/Time Anesthesia Stop Date: 02/17/25 Anesthesia Stop Time: 14:22 Coding CPT Codes CPT Codes: ANESTH KNEE ARTHROPLASTY - 85459 ([id number]) P3 - PATIENT W/SEVERE SYS DISEASE, QK - FORESTER SILVICULTURE 2-4 CNCRNT ANES PROC, QX - CHIROPRACTIC PHYSICIAN SVC W/ MD MED DIRECTION
--- NOTE | 2025-02-17 14:21 | W.ANESCHARGE ---
Anesthesia Charges Start Date/Time Anesthesia Start Date: 02/17/25 Anesthesia Start Time: 12:07 Stop Date/Time Anesthesia Stop Date: 02/17/25 Anesthesia Stop Time: 14:22 Coding CPT Codes CPT Codes: ANESTH KNEE ARTHROPLASTY - 80864 ([id number]) P3 - PATIENT W/SEVERE SYS DISEASE, QK - BUTTON RIVETER 2-4 CNCRNT ANES PROC, QX - SAW MAN SVC W/ MD MED DIRECTION
[2025-02-17] MEDS: CEFAZOLIN 2 GM in 0.9 % SODIUM CHLORIDE Mini-bag 100 ML IVPB (18:13)
--- NOTE | 2025-02-17 18:46 | P.IMCN_ITS ---
Date of Consult Patient: Elsa Patient Consult date: 02/17/25 Requesting Physician: Orthopedics Primary Care Provider: Martina Villalta, DO Consult Narrative Narrative: Eli Costello is a 55 year old female admitted to the hospital for right total knee arthroplasty. Procedures performed by Dr. Wright. No operative complications. Dr. Wright request consultation for managing medical problems following surgery. Patient reports generally doing well after surgery. No significant problems with pain control. She reports otherwise feeling well. No recent illness or injury. No significant concerns on preoperative medical evaluation. History of iron deficiency anemia on chronic iron therapy with normal preop hemoglobin. Patient has a history of cirrhosis secondary to alcohol use. She reports having stop drinking about 3 weeks ago. She reports she did not have any problems with withdrawal at the time. She has had low white count and a low platelet count presumably secondary to alcohol use and cirrhosis. No bleeding problems. No no thrombophilia. She has obstructive sleep apnea and does use CPAP and brought it with her. Review of Systems Narrative: She reports that she has occasionally had to see a chiropractor about a pinched nerve in her neck. It is not currently bothering her. Review of systems is otherwise negative for recent illness injury or active medical concerns. [facility] Medical History (Updated 02/17/25 @ 19:03 by Juarez Reagan MD) Obesity (BMI 30.0-34.9) ?E66.811 - Obesity, class 1 (ICD-10) CATALINA (obstructive sleep apnea) ?G47.33 - Obstructive sleep apnea (adult) (pediatric) (ICD-10) Iron deficiency anemia ?D50.9 - Iron deficiency anemia, unspecified (ICD-10) Alcoholic cirrhosis ?K70.30 - Alcoholic cirrhosis of liver without ascites (ICD-10) Pancytopenia ?D61.818 - Other pancytopenia (ICD-10) Alcohol use ?F10.90 - Alcohol use, unspecified, uncomplicated (ICD-10) Episodic cluster headache, not intractable ?G44.019 - Episodic cluster headache, not intractable (ICD-10) Alcoholic fatty liver ?K70.0 - Alcoholic fatty liver (ICD-10) Iritis ?H20.9 - Unspecified iridocyclitis (ICD-10) Chronic systolic heart failure ?I50.22 - Chronic systolic (congestive) heart failure (ICD-10) Decreased cardiac ejection fraction ?R93.1 - Abnormal findings on diagnostic imaging of heart and coronary circulation (ICD-10) Surgery follow-up ?Z09 - Encounter for follow-up examination after completed treatment for conditions other than malignant neoplasm (ICD-10) Depression ?F32.A - Depression, unspecified (ICD-10) Hypertension ?I10 - Essential (primary) hypertension (ICD-10) GERD (gastroesophageal reflux disease) ?K21.9 - Gastro-esophageal reflux disease without esophagitis (ICD-10) Surgical History (Updated 02/17/25 @ 19:03 by Juarez Reagan MD) Status post right knee replacement ?Z96.651 - Presence of right artificial knee joint (ICD-10) History of hand surgery ?Z98.890 - Other specified postprocedural states (ICD-10) Family History Paternal Grandmother Colon cancer Father Diabetes Social History (Updated 02/17/25 @ 18:54 by Juarez Reagan MD) Narrative: She is and lives with her in [place]. She has 2 adult sons were also currently living with them. She has 2 levels in her house but can live on 1 level. 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 Code status is full. She does not smoke cigarettes having quit about 9 years ago. Previously had excessive use of alcohol but has quit drinking as of 3 weeks ago. What is your current living situation?: I presently have a place to live Problems where you live: no known problems In the past 12 months, utilities in danger of being shut off: no In past 12 months, lack of transportation kept you from medical appts, meetings, work, or getting things needed for daily living: no In the past 12 mos, have been you worried that your food would run out before you had money to buy more?: never true In the past 12 mos, the food you bought just didn't last and you didn't have money to buy more?: never true Highest level of school completed/degree received: high school graduate Smoking Status: Former smoker What tobacco products do you use: cigarettes Smoking packs per day: 1 Smoking cigarettes per day: 20.0 Years smoked: 20 Smoking pack-years: 20.00 Smoking quit date/years: <= 15 years ago Do you use any of these nicotine containing products: None Second hand tobacco smoke exposure: No How often do you have a drink containing alcohol: 2-3 times a week Alcohol type: hard liquor How many standard drinks containing alcohol do you have on a typical day: 1 or 2 How often do you have six or more drinks on one occasion: Never AUDIT-C Alcohol total score: 3 Non-prescribed substance use: denies use Caffeine: Yes Are you now , , , , never or living with a partner: Social isolation score (0-1 are the most socially isolated patients): 1 How often does anyone, including family, friends and others, physically hurt you : never How often does anyone, including family, friends and others, insult or talk down to you: never How often does anyone, including family, friends and others, threaten you with harm: never How often does anyone, including family, friends and others, scream or curse at you: never Are you using contraception or practicing any form of control: No service: No Meds Home Medications and Allergies Home Medications ?Medication ?Instructions ?Recorded ?Confirmed ?Type furosemide 20 mg tablet 20 mg PO DAILY PRN 12/26/21 02/17/25 History omeprazole 20 mg capsule,delayed 20 mg PO DAILY 02/17/25 History release potassium chloride 20 mEq 20 meq PO DAILY PRN 12/26/21 02/17/25 History tablet,extended release(part/cryst) escitalopram oxalate 20 mg tablet 20 mg PO DAILY 07/1302/17/25 History thiamine HCl (vitamin B1) 100 mg 100 mg PO DAILY 07/1302/17/25 History tablet ferrous sulfate 325 mg (65 mg 325 mg PO Q48H 01/03/25 02/17/25 History iron) tablet cetirizine 10 mg capsule (Allergy 10 mg PO DAILY PRN 0 02/15/25 02/17/25 History Relief (cetirizine)) fluticasone propionate 50 1 spray intranasal DAILY PRN 02/15/25 02/17/25 History mcg/actuation nasal spray,suspension (24 Hour Allergy Relief) triamcinolone acetonide 0.5 % 1 applic topical BID PRN 02/15/25 02/17/25 History topical cream aspirin 81 mg chewable tablet 81 mg PO BID for DVT pro phylaxis 02/17/25 Rx (Aspirin Childrens) 30 days #60 tabs oxycodone 5 mg tablet 2.5 - 5 mg (0.5 - 1 x 5 mg) PO 02/17/25 Rx Q4-6H PRN Pain #42 tabs sennosides 8.6 mg tablet (Senna 17.2 mg (2 x 8.6 mg) P O BID PRN 02/17/25 Rx Lax) constipation #100 tabs Home Medication Comments: She has not recently been requiring furosemide, potassium, Flonase. Allergies Allergy/AdvReac Type Severity Reaction Status Date / Time chlorthalidone AdvReac Verified 02/17/25 09:32 erythromycin base AdvReac Nausea Verified 02/17/25 09:32 Penicillins AdvReac syncope Verified 02/17/25 09:32 Exam Narrative: Exam Narrative: She is alert and appears in no distress. She gives her own history. Oropharynx with small airway. Neck is supple without mass or adenopathy. Respirations are clear to auscultation. Breathing is unlabored. Cardiovascular: S1, S2, regular rate and rhythm. Abdomen: Bowel sounds active. Abdomen is soft without tenderness or mass. Upper extremities and lower extremities with intact pulses and sensation good capillary refill. Good strength in both feet and ankles. No edema Const: Vital Signs, click to edit/add: Vital Signs - 24 hr 02/17/25 09:36 02/17/25 11:09 02/17/25 11:15 Temperature 98.2 F Pulse Rate 60 69 64 Pulse Rate [Left P ulse Oximeter] Respiratory Rate 16 16 16 Blood Pressure 183/85 H 163/102 H 155/89 H Blood Pressure [Le ft Arm] Blood Pressure [Ri ght Arm] Pulse Oximetry 97 99 98 Oxygen Delivery Me thod Room Air Nasal Cannula Nasal Cannula Oxygen Flow Rate 2 2 02/17/25 11:30 02/17/25 11:45 02/17/25 14:17 Temperature 98.2 F Pulse Rate 64 67 74 Pulse Rate [Left P ulse Oximeter] Respiratory Rate 16 16 10 L Blood Pressure 132/88 115/81 93/53 L Blood Pressure [Le ft Arm] Blood Pressure [Ri ght Arm] Pulse Oximetry 98 98 93 Oxygen Delivery Me thod Nasal Cannula Nasal Cannula Room Air Oxygen Flow Rate 2 2 02/17/25 14:20 02/17/25 14:25 02/17/25 14:30 Temperature Pulse Rate 75 68 66 Pulse Rate [Left P ulse Oximeter] Respiratory Rate 12 14 12 Blood Pressure 92/55 L 100/62 85/65 L Blood Pressure [Le ft Arm] Blood Pressure [Ri ght Arm] Pulse Oximetry 92 92 92 Oxygen Delivery Me thod Oxygen Flow Rate 02/17/25 14:35 02/17/25 14:40 02/17/25 14:45 Temperature 96.9 F L Pulse Rate 67 66 72 Pulse Rate [Left P ulse Oximeter] Respiratory Rate 14 12 13 Blood Pressure 111/66 106/67 115/69 Blood Pressure [Le ft Arm] Blood Pressure [Ri ght Arm] Pulse Oximetry 95 94 94 Oxygen Delivery Me thod Oxygen Flow Rate 02/17/25 14:53 02/17/25 15:00 02/17/25 15:08 Temperature 97.7 F Pulse Rate Pulse Rate [Left P ulse Oximeter] 60 62 Respiratory Rate 16 16 16 Blood Pressure Blood Pressure [Le ft Arm] Blood Pressure [Ri ght Arm] 109/67 109/64 Pulse Oximetry 95 95 95 Oxygen Delivery Me thod Room Air Room Air Room Air Oxygen Flow Rate 02/17/25 15:15 02/17/25 15:30 02/17/25 15:45 Temperature Pulse Rate Pulse Rate [Left P ulse Oximeter] 65 58 L 61 Respiratory Rate Blood Pressure Blood Pressure [Le ft Arm] Blood Pressure [Ri ght Arm] 121/67 116/69 115/63 Pulse Oximetry 96 96 98 Oxygen Delivery Me thod Room Air Room Air Room Air Oxygen Flow Rate 02/17/25 16:00 02/17/25 17:00 02/17/25 18:38 Temperature Pulse Rate Pulse Rate [Left P ulse Oximeter] 58 L 69 79 Respiratory Rate 18 18 Blood Pressure Blood Pressure [Le ft Arm] 121/76 136/85 Blood Pressure [Ri ght Arm] 122/74 Pulse Oximetry 97 97 97 Oxygen Delivery Me thod Room Air Room Air Room Air Oxygen Flow Rate Labs Labs: Short CBC 02/17/25 Range/Units 09:50 WBC 3.63 L (4.50-11.00) K/uL Hgb 12.5 (12.0-16.0) gm/dL Hct 36.5 (33.0-51.0) % Plt Count 105 L (140-440) K/uL Assessment and Plan Assessment and plan (1) Status post right knee replacement: Problem comment: 02/17/2025, Dr. Wright, no complications Status: Acute (2) Obesity (BMI 30.0-34.9): Problem comment: We discussed use of weight loss medicine for obesity which would be beneficial for sleep apnea as well as possibly for liver disease. Status: Acute (3) Alcoholic cirrhosis: Problem comment: Currently we fairly well compensated. Stop drinking 3 weeks ago. No withdrawal. Preop LFTs relatively normal. Status: Acute (4) Pancytopenia: Problem comment: Preop CBC relatively normal. Check CBC in a.m. Status: Acute Plan 55-year-old female status post right knee arthroplasty generally doing well. Routine management of pain, therapy, monitoring for complications of hematologic and hepatic conditions outlined above. Total Time Spent Total Time Spent: Total time spent today is 45 minutes in reviewing outside records, coordination of care, discussion with patient and other providers ongoing management of these problems.
--- NOTE | 2025-02-17 18:50 | PC.NURSE ---
Nursing Care Hours: [id number] Pt arrived to the floor alert and oriented. Denies nausea or SOB this shift. Pain tolerated. Bracelet And Brooch Maker did give pt PO PRN oxy to stay ahead of pain as pt was beginning to get feeling back. Up to void, in chair for dinner. VSS.
[2025-02-17] MEDS: SENNOSIDES 1 TAB TABLET 2 TAB PO (21:28)
[2025-02-17] MEDS: ASPIRIN 81 MG TABLET EC PO (21:29)
[2025-02-18] MEDS: ACETAMINOPHEN 500 MG TABLET 1000 MG PO ×2 (00:06→06:05)
[2025-02-18 00:10] VITALS: BP 119/67; PULSE 66; RESP 16; RESP 18; TEMP 36.6; O2SAT 96
[2025-02-18 02:30] VITALS: BP 121/75; PULSE 72; RESP 16; TEMP 36.6; O2SAT 94
[2025-02-18] MEDS: CEFAZOLIN 2 GM in 0.9 % SODIUM CHLORIDE Mini-bag 100 ML IVPB (02:30)
--- NOTE | 2025-02-18 05:47 | PC.NURSE ---
Pt is alert and oriented x3. Afebrile. Pt reports 0-3/10 pain in right knee, managed with cold pack, scheduled and PRN medications. Pt's right knee dressing is CDI. Pt is up SBA with walker and gait belt, voiding, and tolerating a regular diet. Pt denies passing gas yet.?
[2025-02-18] MEDS: OMEPRAZOLE 20 MG CAPSULE DR PO (06:05)
[2025-02-18 06:43] LABS: Hematocrit* 32.1 % (33.0-51.0); Hemoglobin* 10.7 gm/dL (12.0-16.0); Immature Granulocytes Abs Auto 0.01 K/uL (0.00-0.30); Immature Granulocytes Pct Auto 0.2 %; Lymphocytes Absolute Auto 1.00 K/uL (0.90-2.90); Mean Corpuscular HGB Conc 33 gm/dL (32-36); Mean Corpuscular Hemoglobin 32 pg (26-34); Mean Corpuscular Volume 94 fL (80-100); RDW Coefficient of Variation % 14.6 % (11.5-15.5); Red Blood Count* 3.40 m/uL (4.00-5.20); Slide Review Reflex No; White Blood Count* 6.57 K/uL (4.50-11.00)
[2025-02-18 08:00] VITALS: BP 120/63; PULSE 63; RESP 16; O2SAT 97
[2025-02-18] MEDS: ASPIRIN 81 MG TABLET EC PO (08:36)
[2025-02-18] MEDS: CELECOXIB 200 MG CAPSULE PO (08:37)
[2025-02-18] MEDS: ESCITALOPRAM 10 MG TABLET 20 MG PO (08:37)
[2025-02-18] MEDS: SENNOSIDES 1 TAB TABLET 2 TAB PO (08:37)
--- NOTE | 2025-02-18 08:45 | PM.ORPN ---
Subjective Subjective Time Seen by Provider: 07:45 Date Seen: 02/18/25 Principal diagnosis: Status post right knee replacement Interval history: Yen is comfortable this morning. She is accompanied by her . She will discharge to home today. Ortho Exam Narrative Exam Narrative: Alert and oriented x3. Patient is in no acute distress. Converses without labored breathing. Hearing is grossly intact. Ambulates with a walker. Examination of the right knee shows dressing is intact. No erythema or warmth or sign of infection. No drainage. Anterior hematoma is present. She is able to straight leg raise. Calf is soft and nontender. No ecchymosis. Mild soft tissue edema. CMS intact right lower extremity Const Vital Signs, click to edit/add: Vital Signs - 24 hr 02/17/25 09:36 02/17/25 11:09 02/17/25 11:15 Temperature 98.2 F Pulse Rate 60 69 64 Pulse Rate [Left Pulse Oximeter] Respiratory Rate 16 16 16 Blood Pressure 183/85 H 163/102 H 155/89 H Blood Pressure [Left Arm] Blood Pressure [Right Arm] Pulse Oximetry 97 99 98 Oxygen Delivery Method Room Air Nasal Cannula Nasal Cannula Oxygen Flow Rate 2 2 02/17/25 11:30 02/17/25 11:45 02/17/25 14:17 Temperature 98.2 F Pulse Rate 64 67 74 Pulse Rate [Left Pulse Oximeter] Respiratory Rate 16 16 10 L Blood Pressure 132/88 115/81 93/53 L Blood Pressure [Left Arm] Blood Pressure [Right Arm] Pulse Oximetry 98 98 93 Oxygen Delivery Method Nasal Cannula Nasal Cannula Room Air Oxygen Flow Rate 2 2 02/17/25 14:20 02/17/25 14:25 02/17/25 14:30 Temperature Pulse Rate 75 68 66 Pulse Rate [Left Pulse Oximeter] Respiratory Rate 12 14 12 Blood Pressure 92/55 L 100/62 85/65 L Blood Pressure [Left Arm] Blood Pressure [Right Arm] Pulse Oximetry 92 92 92 Oxygen Delivery Method Oxygen Flow Rate 02/17/25 14:35 02/17/25 14:40 02/17/25 14:45 Temperature 96.9 F L Pulse Rate 67 66 72 Pulse Rate [Left Pulse Oximeter] Respiratory Rate 14 12 13 Blood Pressure 111/66 106/67 115/69 Blood Pressure [Left Arm] Blood Pressure [Right Arm] Pulse Oximetry 95 94 94 Oxygen Delivery Method Oxygen Flow Rate 02/17/25 14:53 02/17/25 15:00 02/17/25 15:08 Temperature 97.7 F Pulse Rate Pulse Rate [Left Pulse Oximeter] 60 62 Respiratory Rate 16 16 16 Blood Pressure Blood Pressure [Left Arm] Blood Pressure [Right Arm] 109/67 109/64 Pulse Oximetry 95 95 95 Oxygen Delivery Method Room Air Room Air Room Air Oxygen Flow Rate 02/17/25 15:15 02/17/25 15:30 02/17/25 15:45 Temperature Pulse Rate Pulse Rate [Left Pulse Oximeter] 65 58 L 61 Respiratory Rate Blood Pressure Blood Pressure [Left Arm] Blood Pressure [Right Arm] 121/67 116/69 115/63 Pulse Oximetry 96 96 98 Oxygen Delivery Method Room Air Room Air Room Air Oxygen Flow Rate 02/17/25 16:00 02/17/25 17:00 02/17/25 18:38 Temperature Pulse Rate Pulse Rate [Left Pulse Oximeter] 58 L 69 79 Respiratory Rate 18 18 Blood Pressure Blood Pressure [Left Arm] 121/76 136/85 Blood Pressure [Right Arm] 122/74 Pulse Oximetry 97 97 97 Oxygen Delivery Method Room Air Room Air Room Air Oxygen Flow Rate 02/17/25 19:00 02/17/25 20:00 02/18/25 00:10 Temperature 98.1 F Pulse Rate Pulse Rate [Left Pulse Oximeter] 80 84 66 Respiratory Rate 18 18 Blood Pressure Blood Pressure [Left Arm] 131/73 129/70 Blood Pressure [Right Arm] Pulse Oximetry 96 97 Oxygen Delivery Method Room Air Room Air Oxygen Flow Rate 02/18/25 00:10 02/18/25 00:10 02/18/25 02:30 Temperature 97.8 F 97.9 F Pulse Rate Pulse Rate [Left Pulse Oximeter] 66 72 Respiratory Rate 18 16 16 Blood Pressure Blood Pressure [Left Arm] Blood Pressure [Right Arm] 119/67 121/75 Pulse Oximetry 96 96 94 Oxygen Delivery Method Room Air Room Air Room Air Oxygen Flow Rate 02/18/25 08:00 Temperature Pulse Rate Pulse Rate [Left Pulse Oximeter] 63 Respiratory Rate 16 Blood Pressure Blood Pressure [Left Arm] Blood Pressure [Right Arm] 120/63 Pulse Oximetry 97 Oxygen Delivery Method Room Air Oxygen Flow Rate Assessment and Plan Assessment and plan (1) Status post right knee replacement: Problem details: 02/17/2025, Dr. Wright, no complications Status: Acute Assessment and Plan: Plan for discharge is today to home if they meet discharge criteria. DVT prophylaxis includes aspirin 81 mg twice daily x1 month, Compression stockings as needed for swelling. Frequent ambulation, every hour throughout the day. Remove dressing in 1 week. Observe wound and phone Orthopedics with any questions or concerns Return to clinic in 1-2 weeks for a wound check as scheduled Return to clinic in 6 weeks with surgeon Minimize narcotic use. Wean off and discontinue soon as possible. Activities as tolerated. No strenuous activity. Outpatient physical therapy as scheduled. Ice and elevate the operative extremity. No restriction on ice.
--- NOTE | 2025-02-18 11:58 | PC.NURSE ---
The patient discharged home with her this AM. All instructions were provided and reviewed.All the patients belongings were sent home with the patient. Hilary ALCARAZN
== END 2025-02-18 10:45 | disposition home or self-care (01) ==
LOC: OR 09:08 → MEDSURG 09:08
PROVIDERS: Anesthesiology; Family Medicine; PCP Family Medicine; Visit Provider Orthopaedic Surgery
PROC: (CPT 27447; principal; 2025-02-17 11:30)
DX: M17.11 Unilateral primary osteoarthritis, right knee (principal); G89.18 Other acute postprocedural pain; G47.33 Obstructive sleep apnea (adult) (pediatric); D50.9 Iron deficiency anemia, unspecified; E66.811 Obesity, class 1; Z68.34 Body mass index [BMI] 34.0-34.9, adult; D61.818 Other pancytopenia; K21.9 Gastro-esophageal reflux disease without esophagitis; K70.30 Alcoholic cirrhosis of liver without ascites; F10.21 Alcohol dependence, in remission; I11.0 Hypertensive heart disease with heart failure; I50.22 Chronic systolic (congestive) heart failure; Z79.82 Long term (current) use of aspirin
CPT/HCPCS: 27447; 01402; 36415; 64447; 64454; 73560; 76942; 85025; 97110; 97116; 97161; 97165; 97535; A9270; C1776; J0665; J0690; J1100; J2250; J2371; J2405; J2704; J3010; J7120

== ENCOUNTER 2025-03-28 11:15 | Outpatient (RCR) | payer BC, SELFPAY | END 2025-05-23 15:24 | disposition home or self-care (01) | PROVIDERS: PCP Family Medicine; Visit Provider Orthopaedic Surgery | DX: Z47.1 Aftercare following joint replacement surgery (principal); Z96.651 Presence of right artificial knee joint; Z51.89 Encounter for other specified aftercare | CPT/HCPCS: 97110; 97162 ==

== ENCOUNTER 2025-05-12 09:07 | Day surgery (SDC) | payer BC, SELFPAY ==
[2025-05-12] VITALS (26 sets, daily range): BP systolic 78–125; BP diastolic 55–81; PULSE 56–646; RESP 12–18; TEMP 36.2–37.1; O2SAT 92–98; BMI 33.7
[2025-05-12] MEDS: ACETAMINOPHEN 500 MG TABLET 1000 MG PO ×3 (10:00→23:48)
[2025-05-12] MEDS: OXYCODONE (CR) 10 MG TAB.ER.12H PO (10:00)
--- NOTE | 2025-05-12 10:09 | W.PM.H&PU ---
History & Physical Update History & Physical Update H&P Reviewed and patient assessed: No changes noted
[2025-05-12] MEDS: LACTATED RINGERS 1000 ML 1,000 ML 100 ML IV (10:10)
[2025-05-12] MEDS: SODIUM CHLORIDE 0.9 % (FLUSH) 10 ML SYRINGE IVF (10:10)
[2025-05-12 10:19] LABS: Hematocrit* 36.2 % (33.0-51.0); Hemoglobin* 11.7 gm/dL (12.0-16.0); Immature Granulocytes Pct Auto 0.3 %; Mean Corpuscular HGB Conc 32 gm/dL (32-36); Mean Corpuscular Hemoglobin 31 pg (26-34); Mean Corpuscular Volume 97 fL (80-100); RDW Coefficient of Variation % 12.8 % (11.5-15.5); Red Blood Count* 3.73 m/uL (4.00-5.20); White Blood Count* 3.61 K/uL (4.50-11.00)
[2025-05-12 10:20] LABS: Immature Granulocytes Abs Auto 0.00 K/uL (0.00-0.30); Lymphocytes Absolute Auto 1.50 K/uL (0.90-2.90); Slide Review Reflex No
--- NOTE | 2025-05-12 11:08 | SUR.PREOP ---
TIME?OUT:?1109 PT/RN/MDA?VERIFICATION?OF?SURGICAL?SITE-LEFT KNEE,?PROCEDURE, NERVE BLOCK?AND?CONSENT OBTAINED?PRIOR?TO?INVASIVE?PROCEDURE.
[2025-05-12] MEDS: MIDAZOLAM HCL 1 MG/ML inj IVP (11:10)
--- NOTE | 2025-05-12 11:20 | W.PM.NB ---
Nerve Block Nerve Block Time Seen by Provider: 11:15 Date Seen: 05/12/25 Type of block requested by surgeon for post-operative analgesia: geniculars Side: left Time out performed: Yes Verification of patient name: Yes Verification of date of : Yes Site marking: site marked Name of person performing procedure: Darrel Continuous monitoring Was continuous monitoring of O2 sat, B/P, resource conservation specialist, recorded every 15 minutes?: Yes Procedure Checklist: sterile prep, needles and gloves Ultrasound guided. Images saved: Yes Medications given in 5ml increments after negative aspiration: Marcaine %: 0.25 mL: 9 Needle gauge: 25 Patient tolerated procedure well: Yes Block Charges Block Charge (with Pro Fee): Genicular Nerve Block
--- NOTE | 2025-05-12 11:21 | P.ANES_ITS ---
Anesthesia Charges Start Date/Time Anesthesia Start Date: 05/12/25 Anesthesia Start Time: 11:32 Stop Date/Time Anesthesia Stop Date: 05/12/25 Anesthesia Stop Time: 14:05 Coding CPT Codes CPT Codes: ANESTH KNEE ARTHROPLASTY - 06688 ([id number]) P3 - PATIENT W/SEVERE SYS DISEASE, QK - FRAME CHANGER 2-4 CNCRNT ANES PROC, QX - CONFERENCE PLANNING MANAGER SVC W/ MD MED DIRECTION
--- NOTE | 2025-05-12 11:21 | W.PM.NB ---
Nerve Block Nerve Block Time Seen by Provider: 11:15 Date Seen: 05/12/25 Type of block requested by surgeon for post-operative analgesia: adductor canal Side: left Time out performed: Yes Verification of patient name: Yes Verification of date of : Yes Site marking: site marked Name of person performing procedure: Darrel Continuous monitoring Was continuous monitoring of O2 sat, B/P, burlesque dancer, recorded every 15 minutes?: Yes Procedure Checklist: sterile prep, needles and gloves Ultrasound guided. Images saved: Yes Medications given in 5ml increments after negative aspiration: Marcaine %: 0.25 mL: 15 Needle gauge: 20 Precedex (mcg): 25 Patient tolerated procedure well: Yes Block Charges Block Charge (with Pro Fee): Femoral Nerve Use of Ultrasound Machine for Block: Yes- US Guidance/pain block
--- NOTE | 2025-05-12 11:21 | W.ANESCHARGE ---
Anesthesia Charges Start Date/Time Anesthesia Start Date: 05/12/25 Anesthesia Start Time: 11:32 Stop Date/Time Anesthesia Stop Date: 05/12/25 Anesthesia Stop Time: 14:05 Coding CPT Codes CPT Codes: ANESTH KNEE ARTHROPLASTY - 48166 ([id number]) P3 - PATIENT W/SEVERE SYS DISEASE, QK - COMMISSIONER CONSERVATION OF RESOURCES 2-4 CNCRNT ANES PROC, QX - GLUE MOUNTER OPERATOR SVC W/ MD MED DIRECTION
[2025-05-12] MEDS: TRANEXAMIC ACID 100 MG/ML INJ 1000 MG IV (11:45)
--- NOTE | 2025-05-12 11:58 | CRLHL7_ITS ---
For Patients: As a result of the Cures Act, medical imaging exams and procedure reports are released immediately into your electronic medical record. You may view this report before your referring provider. If you have questions, please contact your health care provider. Indication: Postop Technique: Two views left knee Findings/Impression: Hardware from a left total knee arthroplasty is in satisfactory position. Bone alignment is normal. No sign of acute fracture. Postop changes are within normal limits. Dictated by Abhinav Vazquez MD @ 05/12/2025 3:32:22 PM (Electronically Signed)
--- NOTE | 2025-05-12 13:21 | P.ORPRC_ITS ---
Procedure Note Date of procedure: 05/12/25 Procedure: PREOPERATIVE DIAGNOSIS: 1. Left knee osteoarthritis, primary, severe POSTOPERATIVE DIAGNOSIS: 1. Left knee osteoarthritis, primary, severe PROCEDURE: 1. Left total knee arthroplasty - subvastus; limited tourniquet; modifier 22 ... 33% added difficulty for this case due to patient's body mass (106 kg) along with the poor bone quality warranting stemmed tibial component to increase bone- implant stability success potential. In addition, increased number of retractors were required during the procedure. SURGEON: Nathaniel Baca MD. MEDICAL MANAGEMENT TRAINER: DIMAS Spring - Of note, a skilled registered dental assistant was critical for this case to aid in patient positioning, tissue retraction, limb manipulation/positioning, and closure. ANESTHESIA: Spinal anesthetic EBL: 100 mL IMPLANTS: DePuy J&J all cemented TKA - Attune PS femur size 6 narrow Size 5 tibia ([id number] stem) 5 poly spacer 35 mm patella TOURNIQUET: 20 minutes at 270 torr COMPLICATIONS: None evident INDICATIONS: The patient is a pleasant 55-year-old female who has experienced severe left knee pain and difficulty bearing weight. Workup included x-rays which revealed severe osteoarthrosis in the knee. Given the deformity, the dysfunction, and the pain, as well as the failure of nonoperative management, recommendation was made for surgery. FINDINGS: Full-thickness chondral loss diffusely throughout the medial compartment. Significant chondromalacia patellofemoral and lateral compartments as well. Degenerative meniscus pathology medial greater than lateral. Abundant fat deposition within the synovial lining diffusely throughout the knee; this was most notable within the suprapatellar pouch. DESCRIPTION OF PROCEDURE: Following a thorough discussion of risks, benefits, and alternatives consent was obtained and the left knee was marked. The patient was brought to the operating room and placed supine on the operating table. Induction of anesthesia was undertaken. 2 g IV Ancef and 1 g tranexamic acid was administered within 1 hr of incision preoperatively. Proper time-out was performed identifying proper patient, site, procedure. The operative extremity was prepped and draped in the appropriate sterile fashion using ChloraPrep after the patient was positioned supine with all bony prominences well padded. A longitudinal, anterior, midline skin incision was made starting approximately 3cm proximal to the superior pole of the patella and advanced distal to the tibial tubercle. A subvastus approach was utilized. A medial subperiosteal sleeve was created with knife, rock elevator and curved osteotome. The retropatellar fatpad was resected and the synovium in the suprapatellar pouch excised to visualize the anterior femoral cortex. Femoral preparation was performed via an intramedullary guide. Step drill allowed access into the femoral canal. The distal cutting guide was placed with 5? of valgus and 10 mm cut on the distal femur. Femur was sized using a posterior referencing guide in 3? of external rotation. This found have a best fit with the sizing noted above. The 4 in 1 cutting block was then placed, and the distal femur shaped accordingly. The box cut was then created and the trial implant inserted to confirm appropriate fit. We turned our attention to the proximal tibia. Extramedullary guide was utilized for cutting with the goal of being 90 degree cut from the mechanical axis of the tibia in the varus/valgus plane utilizing tibial crest as the primary alignment. Initially a 2 mm resection was performed from the medial tibial plateau. Ultimately, balancing was achieved in both flexion and extension in both varus and valgus. The knee was able to achieve full extension as well comfortably. The patella was initially measured and found have a thickness of 25 mm. It was resected back to approximately 14.5 mm. It was sized to be a best fit with as noted above. This was drilled, trial placed. All trials were placed and found to have an excellent stability and balance. At this stage, trial implants were removed, the knee was thoroughly irrigated with normal saline, and the cement was mixed. After irrigation, the knee was thoroughly dried, and cement placed, with the real tibial and femoral implants placed along with the patella. Trial poly spacer was placed and confirmed to have excellent range of motion and full extension, and the real poly spacer opened and inserted. All extra cement was removed, and a 3 min Betadine soak performed. Finally, a final irrigation round with normal saline was performed. Closure performed with 0 PDS and #0 Stratafix for the quad tendon/retinaculum. 2-0 Vicryl/Stratafix for the subcutaneous and 4-0 Monocryl for subcuticular closure. Dressings were applied and the patient was awoken from anesthesia after the tourniquet deflated and transferred the PACU in stable condition. A skilled registered dental assistant was critical for this case to aid in patient positioning, tissue retraction, bone exposure, limb manipulation/positioning, patient safety, and closure. Again, 33% added time and difficulty for this case due to patient's body mass (106 kg) and increased body mass along with poor bone quality warranting stemmed tibial component to increase bone-implant stability success potential. In addition, increased number of retractors were required during the procedure. PLAN: 1. Weight bear as tolerated operative extremity. 2. 23 hr perioperative antibiotics. 3. Ice. 4. PT/OT consults for ambulation assistance/mobility education. 5. Social work consult for discharge planning. 6. DVT prophylaxis with at SCDs and aspirin twice daily.
--- NOTE | 2025-05-12 14:06 | P.ANES_ITS ---
Anesthesia Charges Start Date/Time Anesthesia Start Date: 05/12/25 Anesthesia Start Time: 11:32 Stop Date/Time Anesthesia Stop Date: 05/12/25 Anesthesia Stop Time: 14:05 Coding CPT Codes CPT Codes: ANESTH KNEE ARTHROPLASTY - 66024 ([id number]) P3 - PATIENT W/SEVERE SYS DISEASE, QK - DIRECT MARKETING SPECIALIST 2-4 CNCRNT ANES PROC, QX - GASOLINE ATTENDANT SVC W/ MD MED DIRECTION
--- NOTE | 2025-05-12 14:06 | W.ANESCHARGE ---
Anesthesia Charges Start Date/Time Anesthesia Start Date: 05/12/25 Anesthesia Start Time: 11:32 Stop Date/Time Anesthesia Stop Date: 05/12/25 Anesthesia Stop Time: 14:05 Coding CPT Codes CPT Codes: ANESTH KNEE ARTHROPLASTY - 23311 ([id number]) P3 - PATIENT W/SEVERE SYS DISEASE, QK - PASTRYCOOK'S ASSISTANT 2-4 CNCRNT ANES PROC, QX - MARINE STRUCTURAL DESIGNER SVC W/ MD MED DIRECTION
[2025-05-12] MEDS: ePHEDrine sulfate 5 MG/ML inj IVP ×2 (14:16→14:23)
--- NOTE | 2025-05-12 15:32 | P.IMCN_ITS ---
Date of Consult Consult date: 05/12/25 Primary Care Provider: Martina Villalta, DO Consult Narrative Narrative: Eli Costello is a 55 year old female patient with past medical history of pancytopenia, iron deficiency anemia, alcoholic cirrhosis and CATALINA who presents for an elective orthopedic surgery for Left knee osteoarthritis. patient is status post left total knee arthroplasty. Patient seen and examined at bedside and she said she has feeling comfortable after the surgery. Patient denies history of bleeding or blood clots. Patient has history of liver cirrhosis, likely secondary to alcohol use. Patient is working on quitting ETOH, her last drink was couple of weeks ago. she sees [facility]. She has history of pancytopenia thought from alcohol and iron deficiency anemia. She has previously seen hematology and sees [facility]. Her lowest platelet count we have was 90,000 on 11/24/24. History decreased EF in 2022, improved to 59% May 2023. No CHF symptoms. She takes furosemide as needed. Has obstructive sleep apnea and uses Cpap. Review of Systems Status of ROS: Reports: 6 or more systems reviewed and unremarkable except as noted in History and below [facility] Medical History (Updated 05/12/25 @ 15:41 by Roro Cunha MD) Hx of echocardiogram ?Z92.89 - Personal history of other medical treatment (ICD-10) Obesity (BMI 30.0-34.9) ?E66.811 - Obesity, class 1 (ICD-10) CATALINA (obstructive sleep apnea) ?G47.33 - Obstructive sleep apnea (adult) (pediatric) (ICD-10) Iron deficiency anemia ?D50.9 - Iron deficiency anemia, unspecified (ICD-10) Alcoholic cirrhosis ?K70.30 - Alcoholic cirrhosis of liver without ascites (ICD-10) Pancytopenia ?D61.818 - Other pancytopenia (ICD-10) Alcohol use ?F10.90 - Alcohol use, unspecified, uncomplicated (ICD-10) Episodic cluster headache, not intractable ?G44.019 - Episodic cluster headache, not intractable (ICD-10) Alcoholic fatty liver ?K70.0 - Alcoholic fatty liver (ICD-10) Iritis ?H20.9 - Unspecified iridocyclitis (ICD-10) Chronic systolic heart failure ?I50.22 - Chronic systolic (congestive) heart failure (ICD-10) Decreased cardiac ejection fraction ?R93.1 - Abnormal findings on diagnostic imaging of heart and coronary circulation (ICD-10) Surgery follow-up ?Z09 - Encounter for follow-up examination after completed treatment for conditions other than malignant neoplasm (ICD-10) Depression ?F32.A - Depression, unspecified (ICD-10) Hypertension ?I10 - Essential (primary) hypertension (ICD-10) GERD (gastroesophageal reflux disease) ?K21.9 - Gastro-esophageal reflux disease without esophagitis (ICD-10) Surgical History (Updated 05/12/25 @ 15:37 by Roro Cunha MD) History of left knee replacement (05/12/25) ?Z96.652 - Presence of left artificial knee joint (ICD-10) Status post right knee replacement (02/17/25) ?Z96.651 - Presence of right artificial knee joint (ICD-10) History of hand surgery ?Z98.890 - Other specified postprocedural states (ICD-10) Family History Paternal Grandmother Colon cancer Father Diabetes Social History (Updated 02/17/25 @ 18:54 by Juarez Reagan MD) Narrative: She is and lives with her in [place]. She has 2 adult sons were also currently living with them. She has 2 levels in her house but can live on 1 level. Her is healthcare power of senior trial attorney. Code status is full. She does not smoke cigarettes having quit about 9 years ago. Previously had excessive use of alcohol but has quit drinking as of 3 weeks ago. What is your current living situation?: I presently have a place to live Problems where you live: no known problems In the past 12 months, utilities in danger of being shut off: no In past 12 months, lack of transportation kept you from medical appts, meetings, work, or getting things needed for daily living: no In the past 12 mos, have been you worried that your food would run out before you had money to buy more?: never true In the past 12 mos, the food you bought just didn't last and you didn't have money to buy more?: never true Highest level of school completed/degree received: high school graduate Smoking Status: Former smoker What tobacco products do you use: cigarettes Smoking packs per day: 1 Smoking cigarettes per day: 20.0 Years smoked: 20 Smoking pack-years: 20.00 Smoking quit date/years: <= 15 years ago Do you use any of these nicotine containing products: None Second hand tobacco smoke exposure: No How often do you have a drink containing alcohol: never How many standard drinks containing alcohol do you have on a typical day: 1 or 2 How often do you have six or more drinks on one occasion: Never AUDIT-C Alcohol total score: 0 Non-prescribed substance use: denies use Caffeine: Yes (tea daily) Are you now , , , , never or living with a partner: Social isolation score (0-1 are the most socially isolated patients): 1 How often does anyone, including family, friends and others, physically hurt you : never How often does anyone, including family, friends and others, insult or talk down to you: never How often does anyone, including family, friends and others, threaten you with harm: never How often does anyone, including family, friends and others, scream or curse at you: never Are you using contraception or practicing any form of control: No service: No Meds Home Medications and Allergies Home Medications ?Medication ?Instructions ?Recorded ?Confirmed ?Type furosemide 20 mg tablet 20 mg PO DAILY PRN 12/26/21 05/12/25 History omeprazole 20 mg capsule,delayed 20 mg PO DAILY 05/12/25 History release potassium chloride 20 mEq 20 meq PO DAILY PRN 12/26/21 05/12/25 History tablet,extended release(part/cryst) escitalopram oxalate 20 mg tablet 20 mg PO DAILY 07/1305/12/25 History thiamine HCl (vitamin B1) 100 mg 100 mg PO DAILY 07/1305/12/25 History tablet ferrous sulfate 325 mg (65 mg 325 mg PO Q48H 01/03/25 05/12/25 History iron) tablet cetirizine 10 mg capsule (Allergy 10 mg PO DAILY PRN 0 02/15/25 05/12/25 History Relief (cetirizine)) fluticasone propionate 50 1 spray intranasal DAILY PRN 02/15/25 05/12/25 History mcg/actuation nasal spray,suspension (24 Hour Allergy Relief) triamcinolone acetonide 0.5 % 1 applic topical BID PRN 02/15/25 05/12/25 History topical cream Allergies Allergy/AdvReac Type Severity Reaction Status Date / Time chlorthalidone AdvReac Verified 05/12/25 09:32 erythromycin base AdvReac Nausea Verified 05/12/25 09:32 Penicillins AdvReac syncope Verified 05/12/25 09:32 Exam Narrative: Exam Narrative: Physical exam GENERAL: Comfortable, no acute distress. HEAD AND NECK: Atraumatic, normocephalic CARDIOVASCULAR: RRR. Normal S1, S2. No murmurs. No lower extremity edema. RESPIRATORY: Clear to auscultation B/L. Good air entry B/L. No wheezes or rhonchi. NEUROLOGY: Alert, awake, oriented X 3. Normal speech. PSYCH: Normal mood, normal affect. Const: Vital Signs, click to edit/add: Vital Signs - 24 hr 05/12/25 10:08 05/12/25 11:15 05/12/25 11:20 Temperature 98.7 F Pulse Rate 64 63 59 L Respiratory Rate 16 16 14 Blood Pressure 116/67 117/72 108/68 Pulse Oximetry 98 98 98 Oxygen Delivery Me thod Room Air Nasal Cannula Nasal Cannula Oxygen Flow Rate 3 3 05/12/25 11:25 05/12/25 14:00 05/12/25 14:05 Temperature 98.7 F 97.1 F L Pulse Rate 60 58 L 59 L Respiratory Rate 12 16 14 Blood Pressure 115/63 99/64 86/63 L Pulse Oximetry 98 92 94 Oxygen Delivery Me thod Nasal Cannula Room Air Room Air Oxygen Flow Rate 3 05/12/25 14:10 05/12/25 14:15 05/12/25 14:20 Temperature 97.2 F L Pulse Rate 64 646 H 56 L Respiratory Rate 14 16 14 Blood Pressure 85/58 L 78/55 L 88/59 L Pulse Oximetry 95 94 94 Oxygen Delivery Me thod Room Air Room Air Room Air Oxygen Flow Rate 05/12/25 14:25 05/12/25 14:30 05/12/25 14:35 Temperature 97.2 F L Pulse Rate 71 61 65 Respiratory Rate 14 14 12 Blood Pressure 92/62 89/61 L 102/64 Pulse Oximetry 95 95 94 Oxygen Delivery Me thod Room Air Room Air Room Air Oxygen Flow Rate 05/12/25 14:40 05/12/25 14:45 Temperature 97.2 F L Pulse Rate 63 60 Respiratory Rate 14 16 Blood Pressure 99/61 103/69 Pulse Oximetry 97 95 Oxygen Delivery Me thod Room Air Room Air Oxygen Flow Rate Labs Labs: Short CBC 05/12/25 Range/Units 10:10 WBC 3.61 L (4.50-11.00) K/uL Hgb 11.7 L (12.0-16.0) gm/dL Hct 36.2 (33.0-51.0) % Plt Count 126 L (140-440) K/uL Assessment and Plan Assessment and plan (1) Status post left knee replacement: Problem comment: Performed today May 12. Weight bear as tolerated operative extremity. PT/OT consults DVT prophylaxis with at SCDs and aspirin twice daily. Encourage incentive spirometry Status: Acute (2) Alcoholic cirrhosis: Problem comment: Patient has history of liver cirrhosis, likely secondary to alcohol use. Patient is working on quitting ETOH, her last drink was couple of weeks ago. she sees [facility]. Status: Acute (3) Pancytopenia: Problem comment: She has history of pancytopenia thought from alcohol and iron deficiency anemia. She has previously seen hematology and sees [facility]. Her lowest platelet count we have was 90,000 on 11/24/24. Status: Acute (4) Iron deficiency anemia: Problem comment: On iron supplements Status: Acute (5) Hx of echocardiogram: Problem comment: History decreased EF in 2022, improved to 59% May 2023. No CHF symptoms. She takes furosemide as needed. She did not use for months. Status: Acute (6) CATALINA (obstructive sleep apnea): Problem comment: On CPAP Status: Acute Total Time Spent Total Time Spent: Time spent: Today I spent 75 minutes seeing the patient, discussing the patient with ER staff, reviewing Expanse and EPIC notes/diagnostics, discussing the care plan with our care time that includes social work, PT/OT, pharmacy, RT, custodial and documenting my impressions and plan in the medical record.
[2025-05-12] MEDS: CEFAZOLIN 2 GM in 0.9 % SODIUM CHLORIDE Mini-bag 100 ML IVPB (17:50)
[2025-05-12] MEDS: ASPIRIN 81 MG TABLET EC PO (20:04)
[2025-05-12] MEDS: SENNOSIDES 1 TAB TABLET 2 TAB PO (20:04)
--- NOTE | 2025-05-12 20:07 | PC.NURSE ---
Nursing Care Hours: [id number] Pt this shift calm and cooperative, alert and oriented. Up in chair for meals. Voided. Ax1 with walker. VSS. Pain treated with PO options. Ice applied. Tolerating regular diet. IV saline locked.
[2025-05-13 00:07] VITALS: BP 106/66; PULSE 80; RESP 18; TEMP 36.6; O2SAT 97
[2025-05-13 04:00] VITALS: BP 122/66; PULSE 78; RESP 18; TEMP 36.6; O2SAT 97
[2025-05-13] MEDS: CEFAZOLIN 2 GM in 0.9 % SODIUM CHLORIDE Mini-bag 100 ML IVPB ×2 (04:27→10:11)
[2025-05-13] MEDS: ACETAMINOPHEN 500 MG TABLET 1000 MG PO (07:00)
[2025-05-13] MEDS: OMEPRAZOLE 20 MG CAPSULE DR PO (07:00)
[2025-05-13 07:43] VITALS: BP 112/68; PULSE 70; RESP 18; TEMP 36.4; O2SAT 92
[2025-05-13 07:48] VITALS: RESP 18; O2SAT 92
[2025-05-13] MEDS: ASPIRIN 81 MG TABLET EC PO (08:51)
[2025-05-13] MEDS: ESCITALOPRAM 10 MG TABLET 20 MG PO (08:51)
[2025-05-13] MEDS: SENNOSIDES 1 TAB TABLET 2 TAB PO (08:51)
[2025-05-13] MEDS: THIAMINE 100 MG TABLET PO (08:51)
--- NOTE | 2025-05-13 09:42 | PM.ORPN ---
Subjective Subjective Time Seen by Provider: 07:35 Date Seen: 05/13/25 Principal diagnosis: Status post left knee replacement Interval history: Yen is comfortable at rest. She will discharge to home today. Ortho Exam Narrative Exam Narrative: Alert and oriented x3. Patient is in no acute distress. Converses without labored breathing. Hearing is grossly intact. Ambulates with a walker. Examination of the left knee shows the dressing is intact. Hematoma anteriorly is noted. She is able to straight leg raise. CMS intact left lower extremity. No erythema or sign of infection. Calves are soft and nontender. Const Vital Signs, click to edit/add: Vital Signs - 24 hr 05/12/25 10:08 05/12/25 11:15 05/12/25 11:20 Temperature 98.7 F Pulse Rate 64 63 59 L Pulse Rate [Right Pulse Oximeter] Respiratory Rate 16 16 14 Blood Pressure 116/67 117/72 108/68 Blood Pressure [Left Arm] Pulse Oximetry 98 98 98 Oxygen Delivery Method Room Air Nasal Cannula Nasal Cannula Oxygen Flow Rate 3 3 05/12/25 11:25 05/12/25 14:00 05/12/25 14:05 Temperature 98.7 F 97.1 F L Pulse Rate 60 58 L 59 L Pulse Rate [Right Pulse Oximeter] Respiratory Rate 12 16 14 Blood Pressure 115/63 99/64 86/63 L Blood Pressure [Left Arm] Pulse Oximetry 98 92 94 Oxygen Delivery Method Nasal Cannula Room Air Room Air Oxygen Flow Rate 3 05/12/25 14:10 05/12/25 14:15 05/12/25 14:20 Temperature 97.2 F L Pulse Rate 64 646 H 56 L Pulse Rate [Right Pulse Oximeter] Respiratory Rate 14 16 14 Blood Pressure 85/58 L 78/55 L 88/59 L Blood Pressure [Left Arm] Pulse Oximetry 95 94 94 Oxygen Delivery Method Room Air Room Air Room Air Oxygen Flow Rate 05/12/25 14:25 05/12/25 14:30 05/12/25 14:35 Temperature 97.2 F L Pulse Rate 71 61 65 Pulse Rate [Right Pulse Oximeter] Respiratory Rate 14 14 12 Blood Pressure 92/62 89/61 L 102/64 Blood Pressure [Left Arm] Pulse Oximetry 95 95 94 Oxygen Delivery Method Room Air Room Air Room Air Oxygen Flow Rate 05/12/25 14:40 05/12/25 14:45 05/12/25 14:58 Temperature 97.2 F L 97.9 F Pulse Rate 63 60 Pulse Rate [Right Pulse Oximeter] 61 Respiratory Rate 14 16 16 Blood Pressure 99/61 103/69 Blood Pressure [Left Arm] 125/76 Pulse Oximetry 97 95 95 Oxygen Delivery Method Room Air Room Air Room Air Oxygen Flow Rate 05/12/25 15:00 05/12/25 15:00 05/12/25 15:15 Temperature Pulse Rate Pulse Rate [Right Pulse Oximeter] 62 64 Respiratory Rate 16 Blood Pressure Blood Pressure [Left Arm] 118/66 118/72 Pulse Oximetry 97 95 97 Oxygen Delivery Method Room Air Room Air Oxygen Flow Rate 05/12/25 15:30 05/12/25 15:45 05/12/25 16:00 Temperature 97.6 F Pulse Rate Pulse Rate [Right Pulse Oximeter] 73 66 69 Respiratory Rate 18 Blood Pressure Blood Pressure [Left Arm] 115/76 124/81 112/68 Pulse Oximetry 97 96 Oxygen Delivery Method Room Air Oxygen Flow Rate 05/12/25 16:30 05/12/25 17:00 05/12/25 18:00 Temperature Pulse Rate Pulse Rate [Right Pulse Oximeter] 69 66 77 Respiratory Rate 18 Blood Pressure Blood Pressure [Left Arm] 124/76 112/65 115/62 Pulse Oximetry 98 97 Oxygen Delivery Method Room Air Room Air Oxygen Flow Rate 05/12/25 20:04 05/12/25 20:10 05/12/25 23:00 Temperature 98 F Pulse Rate Pulse Rate [Right Pulse Oximeter] 78 74 Respiratory Rate 18 Blood Pressure Blood Pressure [Left Arm] 113/65 114/69 Pulse Oximetry 97 97 97 Oxygen Delivery Method Room Air Oxygen Flow Rate 05/12/25 23:00 05/13/25 00:07 05/13/25 04:00 Temperature 98 F 98 F Pulse Rate Pulse Rate [Right Pulse Oximeter] 80 78 Respiratory Rate 18 18 18 Blood Pressure Blood Pressure [Left Arm] 106/66 122/66 Pulse Oximetry 97 97 97 Oxygen Delivery Method Room Air Room Air Room Air Oxygen Flow Rate 05/13/25 07:43 05/13/25 07:48 05/13/25 07:48 Temperature 97.6 F Pulse Rate Pulse Rate [Right Pulse Oximeter] 70 Respiratory Rate 18 18 Blood Pressure Blood Pressure [Left Arm] 112/68 Pulse Oximetry 92 92 92 Oxygen Delivery Method Room Air Room Air Oxygen Flow Rate Assessment and Plan Assessment and plan (1) Status post left knee replacement: Problem details: Performed today May 12. Weight bear as tolerated operative extremity. [place] [facility] [place] twice daily. Encourage incentive spirometry Status: Acute Assessment and Plan: Plan for discharge is today to home if they meet discharge criteria. DVT prophylaxis includes aspirin 81 mg twice daily x1 month, Compression stockings as needed for swelling. Frequent ambulation, every hour throughout the day. Remove dressing in 1 week. Observe wound and phone Orthopedics with any questions or concerns Return to clinic in 1-2 weeks for a wound check as scheduled Return to clinic in 6 weeks with surgeon Minimize narcotic use. Wean off and discontinue soon as possible. Activities as tolerated. No strenuous activity. Outpatient physical therapy as scheduled. Ice and elevate the operative extremity. No restriction on ice. She has mild hepatic cirrhosis. She has taken aspirin in the past without problems. We discussed that if she has any bleeding she should stop the aspirin and call us. With cirrhosis she has a increased bleeding risk on aspirin. Hospitalist is aware of this.
[2025-05-13 10:24] VITALS: BP 109/63; PULSE 73; RESP 18; TEMP 36.6; O2SAT 97
--- NOTE | 2025-05-13 10:56 | PC.NURSE ---
shift note: pt is AOx4. VSS. pt is afebrile. Dressing C/D/I/ pt has no notable bruising, mild edematous at surgical site. active ice applied. pt denies nausea. tolerating regular diet, on RA. pt worked with PT/OT. reported pain, meds given- see EMAR. pt is bedside & supportive. W/C out by AALIYAH to personal vehicle to be driven home by spouse.
== END 2025-05-13 10:54 | disposition home or self-care (01) ==
LOC: OR 09:09 → MEDSURG 09:11
PROVIDERS: Anesthesiology; PCP Family Medicine; Visit Provider Orthopaedic Surgery Sports Medicine
PROC: (CPT 27447; principal; 2025-05-12 11:15)
DX: M17.12 Unilateral primary osteoarthritis, left knee (principal); G89.18 Other acute postprocedural pain; G47.33 Obstructive sleep apnea (adult) (pediatric); K70.30 Alcoholic cirrhosis of liver without ascites; F10.21 Alcohol dependence, in remission; I11.0 Hypertensive heart disease with heart failure; I50.22 Chronic systolic (congestive) heart failure; D61.818 Other pancytopenia; D50.9 Iron deficiency anemia, unspecified; E66.811 Obesity, class 1; Z68.33 Body mass index [BMI] 33.0-33.9, adult
CPT/HCPCS: 27447; 01402; 36415; 64447; 64454; 73560; 76942; 85025; 97110; 97116; 97161; 97165; A9270; C1776; J0665; J0690; J1100; J2250; J2371; J2405; J2704; J3010; J7120